=== PATIENT | female | born 1960 | race African-American/Black ===

== ENCOUNTER 2020-08-18 18:10 | Observation (INO) | payer BC, OTHER ==
[2020-08-18] MEDS ORDERED: LEVALBUTEROL 1.25 MG/3 ML NEB ONE (19:09)
[2020-08-18 19:58] LABS: Absolute Lymphocytes (CBC) 2.1 K/uL (0.7-4.9); Lymphocytes % 31.6 % (15.3-44.8); MPV 8.9 fL (7.6-11.3); Protime INR 1.13; RBC Red Blood Cell Count 4.15 M/uL (3.86-4.86)
--- NOTE | 2020-08-18 20:08 | RAD REPORT ---
EXAM DESCRIPTION: RAD - Chest Single View - 08/18/2020 7:42 pm CLINICAL HISTORY: Chest pain;SOB Chest pain. COMPARISON: CHEST SINGLE VIEW dated 04/02/2015; CHEST PA AND LAT 2 VIEW dated 08/01/2008 FINDINGS: Portable technique limits examination quality. Mild interstitial pulmonary edema suspected. The heart is moderately enlarged in size No displaced fr actures. IMPRESSION: Mild CHF.
[2020-08-18 20:18] LABS: Albumin 3.3 g/dL (3.4-5.0); Bilirubin Direct 0.3 mg/dL (0-0.2); Bilirubin Total 0.9 mg/dL (0.2-1.0); Magnesium 1.9 mg/dL (1.8-2.4); Potassium 3.2 mmol/L (3.5-5.1); Protein, Total 8.3 g/dL (6.4-8.2); Troponin (Emerg Dept Use Only) 0.04 ng/mL (0.0-0.045)
--- NOTE | 2020-08-18 20:58 | EDPHYS ---
Physician Documentation [facility] Name: Mary Rodriguez Age: 60 yrs Sex: Female : 1960 Arrival Date: 08/18/2020 Time: 18:11 Bed 19 Private MD: ED Physician Sean Manzano HPI: 08/18 18:51 This 60 yrs old Black Female presents to ER via Wheelchair with complaints of Shortness pm1 Of Breath, Weakness. 18:51 The patient has shortness of breath with light activity. Onset: The symptoms/episode pm1 began/occurred 3 week(s) ago. Duration: The symptoms with exertion only. The patient's shortness of breath is aggravated by exertion, light activity. Associated signs and symptoms: Pertinent positives: chest pain, non-productive cough, Pertinent negatives: fever, nausea, vomiting. Severity of symptoms: in the emergency department the symptoms are worse. The patient has not recently seen a physician, and does not have an established primary care provider. Patient reports finding mold in her house and attributes her symptoms of shortness of breath and chest pain to it. Reports exertional shortness of breath and chest pain for the past 3 weeks that has progressively gotten worse. No fever. Dry cough for 3 weeks. Historical: - Allergies: 18:36 No Known Allergies; ca1 - Home Meds: 18:36 losartan oral oral [Active]; ca1 - PMHx: 18:36 Hypertension; Breast Cancer; ca1 - PSHx: 18:36 breast cancer; Hysterectomy; Mastectomy, Left; Mastectomy, Right; ca1 - Immunization history:: Adult Immunizations up to date. - Social history:: Smoking status: Patient denies any tobacco usage or history of. ROS: 18:59 Constitutional: Negative for fever, chills, and weight loss, Eyes: Negative for injury, pm1 pain, redness, and discharge, ENT: Negative for injury, pain, and discharge, Neck: Negative for injury, pain, and swelling. 18:59 Abdomen/GI: Negative for abdominal pain, nausea, vomiting, diarrhea, and constipation, Back: Negative for injury and pain, : Negative for injury, bleeding, discharge, and swelling, MS/Extremity: Negative for injury and deformity, Skin: Negative for injury, rash, and discoloration, Neuro: Negative for headache, weakness, numbness, tingling, and seizure. 18:59 Cardiovascular: Positive for chest pain, palpitations, with exertion. Bilateral pedal edema. 18:59 Respiratory: Positive for cough, shortness of breath, on exertion. Exam: 18:59 Constitutional: This is a well developed, well nourished patient who is awake, alert, pm1 and in no acute distress. Head/Face: Normocephalic, atraumatic. Chest/axilla: Normal chest wall appearance and motion. Nontender with no deformity. No lesions are appreciated. 18:59 Back: No spinal tenderness. No costovertebral tenderness. Full range of motion. Skin: Warm, dry with normal turgor. Normal color with no rashes, no lesions, and no evidence of cellulitis. MS/ Extremity: Pulses equal, no cyanosis. Neurovascular intact. Full, normal range of motion. 18:59 Cardiovascular: Rate: tachycardic, actual rate is 111 bpm, Rhythm: regular, Pulses: no pulse deficits are appreciated, Heart sounds: normal, normal S1and S2, no S3 or S4, no murmur, no rub, no gallop, Edema: pedal edema, that is very mild. 18:59 Respiratory: the patient does not display signs of respiratory distress, Breath sounds: rhonchi, that are mild, are located in both bases. 18:59 Abdomen/GI: Exam negative for acute changes, Inspection: abdomen appears normal, Palpation: abdomen is soft and non-tender, in all quadrants. 18:59 Neuro: Exam negative for acute changes, Orientation: is normal, Mentation: is normal, Motor: is normal, moves all fours, Sensation: is normal, no obvious gross deficits. Vital Signs: 18:15 BP 151 / 104; Pulse 117; Resp 20; Temp 97.4(TE); Pulse Ox 100% on R/A; Weight 77.11 kg ca1 (R); Height 5 ft. 2 in. (157.48 cm) (R); Pain 5/10; 21:01 BP 158 / 103; Pulse 97; Resp 26; Pulse Ox 99% on R/A; ll2 22:00 BP 152 / 112; Pulse 103; Resp 27; Pulse Ox 99% on R/A; ll2 23:30 BP 150 / 93; Pulse 103; Resp 21; Pulse Ox 100% on R/A; ll2 18:15 Body Mass Index 31.09 (77.11 kg, 157.48 cm) ca1 MDM: 18:38 Patient medically screened. pm1 18:59 Data reviewed: vital signs. Data interpreted: Pulse oximetry: on room air is 100 %. pm1 Interpretation: normal. 20:28 Counseling: I had a detailed discussion with the patient and/or guardian regarding: the pm1 historical points, exam findings, and any diagnostic results supporting the discharge/admit diagnosis, lab results, radiology results, the need for further work-up and treatment in the hospital. 08/18 18:44 Order name: Basic Metabolic Panel; Complete Time: 20:26 pm1 08/18 18:44 Order name: CBC with Diff; Complete Time: 20:10 pm1 08/18 18:44 Order name: LFT's; Complete Time: 20:26 pm1 08/18 18:44 Order name: Magnesium; Complete Time: 20:26 pm1 08/18 18:44 Order name: NT PRO-BNP; Complete Time: 20:26 pm1 08/18 18:44 Order name: PT-INR; Complete Time: 20:10 pm1 08/18 18:44 Order name: Troponin (emerg Dept Use Only); Complete Time: 20:26 pm1 08/18 18:44 Order name: XRAY Chest (1 view); Complete Time: 20:10 pm1 08/18 18:59 Order name: Flu; Complete Time: 21:48 pm1 08/18 18:59 Order name: Strep; Complete Time: 21:06 pm1 08/18 21:05 Order name: Throat Culture [facility] 08/18 21:13 Order name: SARS-COV-2 RT PCR; Complete Time: 22:45 [facility] 08/18 18:37 Order name: EKG; Complete Time: 18:37 ca1 08/18 18:37 Order name: EKG - Nurse/Tech; Complete Time: 18:37 ca1 08/18 18:44 Order name: Cardiac monitoring; Complete Time: 19:49 pm1 08/18 18:44 Order name: IV Saline Lock; Complete Time: 19:49 pm1 08/18 18:44 Order name: Labs collected and sent; Complete Time: 19:49 pm1 08/18 18:44 Order name: O2 Per Protocol; Complete Time: 19:49 pm1 08/18 18:44 Order name: O2 Sat Monitoring; Complete Time: 19:49 pm1 Administered Medications: 19:48 Drug: Xopenex 1.25 mg Route: Inhalation; ll2 20:52 Drug: Lasix 20 mg Route: IVP; Site: right forearm; ea 22:23 Follow up: Response: No adverse reaction ll2 20:54 Drug: Potassium Chloride 40 mEq Route: PO; ea 22:23 Follow up: Response: No adverse reaction ll2 23:03 Drug: hydrALAZINE 10 mg Route: IV; Rate: calculated rate; Site: right wrist; ll2 23:22 Follow up: Response: No adverse reaction; IV Status: Completed infusion ll2 Disposition: 08/18/20 20:57 Hospitalization ordered by Vernon Martin for Inpatient Admission. Preliminary diagnosis are Unspecified systolic (congestive) heart failure, Shortness of breath, Chest pain, unspecified. - Bed requested for Telemetry/MedSurg (Inpatient). - Status is Inpatient Admission. ll2 - Condition is Stable. - Problem is new. - Symptoms are unchanged. Addendum: 08/20/2020 06:58 Co-signature as Attending Physician, Sean Manzano MD I agree with the assessment and k dr plan of care. Signatures: Dispatcher [employer] [facility] Sean Manzano MD MD [facility] Joe Coates, BLUE LEATHER SETTER-C BLUE LEATHER SETTER-Cla1 Louise Bailon, KEEGAN RN Jason Jimenez, MONTSE BENEFITS REPRESENTATIVE pm1 Aisha Lee RN RN ea Acob, Cheryl, RN RN [facility] Gina Collazo RN RN ll2 Corrections: (The following items were deleted from the chart) 08/18 20:58 20:57 Hospitalization Ordered by Vernon Martin MD for Inpatient Admission. Preliminary pm1 diagnosis is Altered mental status, unspecified. Bed requested for Telemetry/MedSurg (Inpatient). Status is Inpatient Admission. Condition is Stable. Problem is new. Symptoms are unchanged. pm1 21:13 19:00 CORONAVIRUS+.CESAR ordered. [facility] EDME 23:10 20:58 08/18/2020 20:57 Hospitalization Ordered by Vernon Martin MD for Inpatient Admission. Preliminary diagnosis is Unspecified systolic (congestive) heart failure; Shortness of breath; Chest pain, unspecified. Bed requested for Telemetry/MedSurg (Inpatient). Status is Inpatient Admission. Condition is Stable. Problem is new. Symptoms are unchanged. pm1 23:49 23:10 08/18/2020 20:57 Hospitalization Ordered by Vernon Martin MD for Inpatient ll2 Admission. Preliminary diagnosis is Unspecified systolic (congestive) heart failure; Shortness of breath; Chest pain, unspecified. Bed requested for Telemetry/MedSurg (Inpatient). Status is Inpatient Admission. Condition is Stable. Problem is new. Symptoms are unchanged. cg
--- NOTE | 2020-08-18 20:58 | ER ---
Nurse's Notes [facility] Name: Mary Rodriguez Age: 60 yrs Sex: Female : 1960 Arrival Date: 08/18/2020 Time: 18:11 Bed 19 Private MD: Diagnosis: Unspecified systolic (congestive) heart failure;Shortness of breath;Chest pain, unspecified Presentation: 08/18 18:15 Chief complaint: Patient states: I got mold in my house, has had SOB x 3 months, but ca1 has been worse past 3 weeks. Cough x 3-4 wks. Denies fever. Denies asthma, COPD, CHF. Reports CP with SOB. CP only with exertion, described as heavy and tight. States, "If I take few steps, I get very short of breath and my chest hurts". Coronavirus screen: Client denies travel out of the [place] in the last 14 days. cough unrelated to allergies, shortness of breath, Client presents with at least one sign or symptom that may indicate coronavirus-19. Standard/surgical mask placed on the client. Provider contacted for isolation considerations. Ebola Screen: Patient negative for fever greater than or equal to 101.5 degrees Fahrenheit, and additional compatible Ebola Virus Disease symptoms Patient denies exposure to infectious person. Patient denies travel to an Ebola-affected area in the 21 days before illness onset. No symptoms or risks identified at this time. Initial Sepsis Screen: Does the patient meet any 2 criteria? No. Patient's initial sepsis screen is negative. Does the patient have a suspected source of infection? No. Patient's initial sepsis screen is negative. Risk Assessment: Do you want to hurt yourself or someone else? Patient reports no desire to harm self or others. Onset of symptoms was August 18, 2020. 18:15 Acuity: PILY 2 ca1 18:15 Method Of Arrival: Wheelchair ca1 Triage Assessment: 22:11 General: Appears in no apparent distress. Behavior is calm, cooperative, appropriate ll2 for age. Respiratory: Respiratory: Reports shortness of breath Onset: The symptoms/episode began/occurred gradually. Historical: - Allergies: 18:36 No Known Allergies; ca1 - Home Meds: 18:36 losartan oral oral [Active]; ca1 - PMHx: 18:36 Hypertension; Breast Cancer; ca1 - PSHx: 18:36 breast cancer; Hysterectomy; Mastectomy, Left; Mastectomy, Right; ca1 - Immunization history:: Adult Immunizations up to date. - Social history:: Smoking status: Patient denies any tobacco usage or history of. Screenin:55 Abuse screen: Denies threats or abuse. Nutritional screening: No deficits noted. ea Tuberculosis screening: No symptoms or risk factors identified. Fall Risk IV access (20 points). Assessment: 20:00 Reassessment: No changes from previously documented assessment. Patient and/or family ll2 updated on plan of care and expected duration. Pain level reassessed. Patient is alert, oriented x 3, equal unlabored respirations, skin warm/dry/pink. General: Appears in no apparent distress. Behavior is calm, cooperative, appropriate for age. 20:55 Reassessment: Patient and/or family updated on plan of care and expected duration. Pain ea level reassessed. Patient is alert, oriented x 3, equal unlabored respirations, skin warm/dry/pink. 20:56 Pain: Denies pain. Respiratory: Airway is patent Respiratory effort is even, unlabored, ea Respiratory pattern is regular, symmetrical. 21:55 Reassessment: ERD notified of elevated BP, advised to refer to hospitalist for orders, ll2 Joe contacted and verbal order obtained for Hydralazine. Cardiovascular: Rhythm is sinus rhythm. 22:12 Respiratory: Breath sounds with wheezes. ll2 23:27 Reassessment: Report given to Aisha Govea RN. ll2 Vital Signs: 18:15 BP 151 / 104; Pulse 117; Resp 20; Temp 97.4(TE); Pulse Ox 100% on R/A; Weight 77.11 kg ca1 (R); Height 5 ft. 2 in. (157.48 cm) (R); Pain 5/10; 21:01 BP 158 / 103; Pulse 97; Resp 26; Pulse Ox 99% on R/A; ll2 22:00 BP 152 / 112; Pulse 103; Resp 27; Pulse Ox 99% on R/A; ll2 23:30 BP 150 / 93; Pulse 103; Resp 21; Pulse Ox 100% on R/A; ll2 18:15 Body Mass Index 31.09 (77.11 kg, 157.48 cm) ca1 ED Course: 18:11 Patient arrived in ED. ag5 18:33 Jason Jimenez NP is PHCP. pm1 18:33 Sean Manzano MD is Attending Physician. pm1 18:35 Triage completed. ca1 18:36 Arm band placed on right wrist. ca1 18:36 EKG done, by ED staff, reviewed by Jason Jimenez NP. ca1 19:18 Loni Boyer, RN is Primary Nurse. 19:42 XRAY Chest (1 view) In Process Unspecified. EDMS 19:42 Inserted saline lock: 20 gauge in right forearm, using aseptic technique. Blood dh4 collected. 20:55 Patient has correct armband on for positive identification. Placed in gown. Bed in low ea position. Call light in reach. Side rails up X 1. 20:57 Vernon Martin MD is Hospitalizing Provider. pm1 23:48 No provider procedures requiring assistance completed. Patient admitted, IV remains in ll2 place. Administered Medications: 19:48 Drug: Xopenex 1.25 mg Route: Inhalation; ll2 20:52 Drug: Lasix 20 mg Route: IVP; Site: right forearm; ea 22:23 Follow up: Response: No adverse reaction ll2 20:54 Drug: Potassium Chloride 40 mEq Route: PO; ea 22:23 Follow up: Response: No adverse reaction ll2 23:03 Drug: hydrALAZINE 10 mg Route: IV; Rate: calculated rate; Site: right wrist; ll2 23:22 Follow up: Response: No adverse reaction; IV Status: Completed infusion ll2 Outcome: 20:57 Decision to Hospitalize by Provider. pm1 23:49 Admitted to Med/surg accompanied by tech, via wheelchair, Report called to Aisha Govea RN ll2 23:49 Condition: stable 23:49 Instructed on the need for admit. 23:49 Patient left the ED. ll2 Signatures: Dispatcher [employer] [facility]CO Jason Jimenez NP CDA TEACHER pm1 Aisha Lee RN RN ea Acob, Cheryl, RN RN Karen Vanessa 5 Loni Boyer, RN Cedrick Louis 4 Gina Collazo RN RN ll2 Corrections: (The following items were deleted from the chart) 18:38 18:15 Method Of Arrival: Ambulatory ca1 ca1 20:56 20:55 Reassessment: Patient and/or family updated on plan of care and expected ea duration. Pain level reassessed. Patient is alert, oriented x 3, equal unlabored respirations, skin warm/dry/pink. ea 23:04 23:03 hydrALAZINE 10 mg IV at calculated rate in right forearm ll2 ll2
[2020-08-18] MEDS ORDERED: POTASSIUM CL SA 10 MEQ TAB PO ONE (20:59)
[2020-08-18] MEDS ORDERED: FUROSEMIDE 20 MG/ 2ML VIAL ONE (20:59)
--- NOTE | 2020-08-18 22:47 | P.HP ---
Certification for Inpatient Patient admitted to: Observation With expected LOS: <2 Midnights Patient will require the following post-hospital care: None Practitioner: I am a practitioner with admitting privileges, knowledge of patient current condition, hospital course, and medical plan of care. Services: Services provided to patient in accordance with Admission requirements found in Title 42 Section 412.3 of the Code of Federal Regulations <AminataJoe - Last Filed: 08/18/20 22:43> Patient History Date of Service: 08/18/20 Primary Care Provider: Dr. Loyd Reason for admission: Acute CHF History of Present Illness: 60-year-old female with history of hypertension presents [facility] department for chest pain, dyspnea on exertion, progressive swelling of the lower extremities over the course of the last 2 weeks. Patient denies any known history of CHF. Patient has never seen cardiology. Patient was worked up in the emergency department and found to have elevated BNP at 2493. Chest x-ray with mild pulmonary edema. Patient with significant dyspnea on exertion, can barely walk to bathroom without becoming dyspneic. ED provider wishes to admit patient for further evaluation and management. When I saw the patient in the emergency department she is awake, alert, oriented x3. Patient states she only has chest pain and dyspnea with exertion, okay at rest at this time. Patient does have bibasilar crackles/rales on exam. 2+ nonpitting edema bilateral lower extremities. Patient be admitted for further evaluation and management. 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 - Family History Father -: Heart disease, Hypertension, Diabetes Mother -: Hypertension, Diabetes - Social History Smoking Status: Never smoker Alcohol use: Yes CD- Drugs: No Caffeine use: No Place of Residence: Home <Joe Coates - Last Filed: 08/18/20 22:43> Date of Service: 08/22/20 <Vernon Martin - Last Filed: 08/22/20 13:20> Allergies No Known Drug Allergies Allergy (Verified 04/02/15 05:54) Unknown Home Medications: Aspirin [Aspirin EC 81 MG] 81 mg PO DAILY 30 Days #30 tablet. 08/19/20 Furosemide [Lasix] 40 mg PO DAILY 30 Days #30 tablet 08/19/20 Metoprolol Tartrate [Lopressor*] 1 tab PO BID 30 Days #60 tab 08/19/20 lisinopriL [Lisinopril] 1 tab PO DAILY 30 Days #30 tablet 08/19/20 Review of Systems 10-point ROS is otherwise unremarkable Respiratory: Shortness of Breath, SOB with Excertion Cardiovascular: Chest Pain, Orthopnea <Joe Coates - Last Filed: 08/18/20 22:43> Physical Examination - Physical Exam General: Alert, In no apparent distress, Oriented x3 HEENT: Atraumatic, Normocephalic, Mucous membr. moist/pink Neck: Supple Respiratory: Clear to auscultation bilaterally, Crackles/rales (Bibasilar) Cardiovascular: Normal pulses, Regular rate/rhythm, Normal S1 S2, Edema (2+ nonpitting edema bilateral lower extremities) Capillary refill: <2 Seconds Gastrointestinal: Normal bowel sounds, Soft and benign Musculoskeletal: No swelling, No contractures, No erythema Integumentary: No breakdown, No significant lesion, No tenderness/swelling Neurological: Normal speech, Normal strength at 5/5 x4 extr, Normal tone, Sensation intact - Studies Laboratory Data (last 24 hrs) 08/18/20 19:41: PT 13.3 H, INR 1.13 08/18/20 19:41: WBC 6.6, Hgb 11.7 L, Hct 36.0, Plt Count 243 08/18/20 19:41: Sodium 141, Potassium 3.2 L, BUN 16, Creatinine 0.89, Glucose 76, Magnesium 1.9, Total Bilirubin 0.9, AST 106 H, ALT 99 H, Alkaline Phosphatase 97 Microbiology Data (last 24 hrs): 08/18/20 20:34 Nasopharnyx Influenza Type A Antigen Screen - Final 08/18/20 20:34 Nasopharnyx Influenza Type B Antigen Screen - Final 08/18/20 20:34 Throat Group A Streptococcus Rapid Screen - Final <Joe Coates - Last Filed: 08/18/20 22:43> - Studies Microbiology Data (last 24 hrs): 08/18/20 20:34 Throat Culture & Sensitivity - Final NORMAL UPPER RESPIRATORY DAVID GROWN. <Vernon Martin - Last Filed: 08/22/20 13:20> Assessment and Plan - Plan Assessment Chest pain, edema and dyspnea on exertion suspect new onset CHF Hypertension Plan Chest pain, edema and dyspnea on exertion suspect new onset CHF: Continue with the IV diuresis at this time. Cardiology consult in place. Obtain echocardiogram. Monitor on telemetry. Initiate beta-ajy therapy, likely add ARAMIS-inhibitor. DVT prophylaxis is Lovenox 40 mg subcutaneous once daily. Appreciate further input from cardiology. Hypertension: Initiate beta-jay and ARAMIS-inhibitor. Discharge Plan: Home Plan to discharge in: 24 Hours - Advance Directives Does patient have a Living Will: No Does patient have a Durable POA for Healthcare: No - Code Status/Comfort Care Code Status Assessed: Yes (Patient is full code) Critical Care: No Time Spent Managing Pts Care (In Minutes): 55 <Joe Coates - Last Filed: 08/18/20 22:43> Physician Review Additional Text: Plan of care discussed with Joe Coates, and I agree with the management plan as noted above. <Vernon Martin - Last Filed: 08/22/20 13:20>
[2020-08-18] MEDS ORDERED: HYDRALAZINE HCL 20 MG/ML VIAL ONE (22:56)
[2020-08-18 23:59] VITALS: BMI 29.0
[2020-08-19] MEDS ORDERED: HYDRALAZINE HCL 20 MG/ML VIAL IV PRN (00:09)
[2020-08-19] MEDS ORDERED: ACETAMINOPHEN 500 MG TAB PO PRN (00:09)
[2020-08-19] MEDS ORDERED: ONDANSETRON 4 MG/2 ML VIAL IV PRN (00:09)
[2020-08-19] MEDS ORDERED: METOPROLOL TAR 25 MG TAB PO SCH (06:00)
[2020-08-19 07:19] LABS: Absolute Lymphocytes (CBC) 1.4 K/uL (0.7-4.9); Basophils % 0.9 % (0-1.3); Hematocrit 35.2 % (36.0-45.0); Lymphocytes % 25.6 % (15.3-44.8); MPV 9.2 fL (7.6-11.3); RBC Red Blood Cell Count 4.08 M/uL (3.86-4.86)
[2020-08-19 07:33] LABS: BUN Blood Urea Nitrogen 12 mg/dL (7-18); Bicarbonate 25 mmol/L (21-32); Glucose Level 70 mg/dL (74-106); HDL Cholesterol 49 mg/dL (40-60); LDL Cholesterol, Calculated 58 (<130); Potassium 3.5 mmol/L (3.5-5.1); Sodium Level 140 mmol/L (136-145); Thyroid Stimulating Hormone 0.964 uIU/mL (0.360-3.740)
[2020-08-19] MEDS ORDERED: FUROSEMIDE 20 MG/ 2ML VIAL IV SCH (09:00)
[2020-08-19] MEDS ORDERED: ENOXAPARIN 40 MG/0.4 ML SQ SCH (09:00)
[2020-08-19] MEDS ORDERED: lisinopriL 5 MG TAB PO SCH (09:00)
[2020-08-19 09:37] VITALS: O2SAT 99
[2020-08-19 11:17] VITALS: TEMP 97
--- NOTE | 2020-08-19 11:48 | P.DS ---
Admission Date: 08/18/20 Discharge Date: 08/19/20 Primary Care Provider: Dr. Loyd Disposition: ROUTINE DISCHARGE Discharge Condition: GOOD Reason for Admission: Acute CHF Consultations: Cardiology - Dr. Cross Procedures: CXR (08/18): Mild interstitial pulmonary edema suspected. The heart is moderately enlarged in size. No displaced fractures. Problem List Chest pain acute exacerbation of chronic systolic CHF Hypertension Brief History of Present Illness: 60yo female, PMH: chronic systolic CHF (EF: 35% in 2016), HTN who presented to ED due to chest pain, ESCALANTE, progressive swelling of b/l lower extremities over the last 2 weeks. Patient was found to have a BNP of 2493, CXR: mild pulmonary edema, and significant dyspnea on exertion, can barely walk to bathroom without becoming dyspneic. Hospital Course: Patient was diuresed overnight and the following morning she reported feeling significantly improved, able to walk to bathroom and around her room without dyspnea. Her troponins remained negative. Cardiology was consulted and agreed patient was ready for discharge home. She did not require oxygen, was breathing comfortably on room air. She will follow up with Cardiology for an outpatient echocardiogram and stress test. This exacerbation was felt due to patient's noncompliance with medications. The importance of her medications was emphasized prior to discharge home. Patient's ARB-HCTZ was discontinued on discharge and she was sent prescriptions for Aspirin, Metoprolol, Lisinopril, and Lasix Vital Signs/Physical Exam: Temp Pulse Resp BP Pulse Ox 97 F 78 18 145/74 H 96 08/19/20 08:00 08/19/20 09:31 08/19/20 08:00 08/19/20 09:31 08/19/20 08:00 General: Alert, In no apparent distress HEENT: Mucous membr. moist/pink Neck: Supple, JVD not distended Respiratory: Clear to auscultation bilaterally, Normal air movement Cardiovascular: Edema (trace to mid wang bilaterally) Gastrointestinal: Soft and benign, Non-distended, No tenderness Musculoskeletal: No erythema, No tenderness Integumentary: No rashes Neurological: Normal speech, Normal affect Laboratory Data at Discharge: WBC 5.6 K/uL (4.3-10.9) D 08/19/20 07:00 Hgb 11.5 g/dL (12.0-15.0) L 08/19/20 07:00 Hct 35.2 % (36.0-45.0) L 08/19/20 07:00 Plt Count 257 K/uL (152-406) 08/19/20 07:00 PT 13.3 SECONDS (9.5-12.5) H 08/18/20 19:41 INR 1.13 08/18/20 19:41 Sodium 140 mmol/L (136-145) 08/19/20 07:00 Potassium 3.5 mmol/L (3.5-5.1) 08/19/20 07:00 BUN 12 mg/dL (7-18) 08/19/20 07:00 Creatinine 0.74 mg/dL (0.55-1.3) 08/19/20 07:00 Glucose 70 mg/dL (74-106) L 08/19/20 07:00 Magnesium 1.9 mg/dL (1.8-2.4) 08/18/20 19:41 Total Bilirubin 0.9 mg/dL (0.2-1.0) 08/18/20 19:41 AST 106 U/L (15-37) H 08/18/20 19:41 ALT 99 U/L (12-78) H 08/18/20 19:41 Alkaline Phosphatase 97 U/L (45-117) 08/18/20 19:41 Troponin I 0.03 ng/mL (0.0-0.045) 08/19/20 07:00 Triglycerides 57 mg/dL (<150) 08/19/20 07:00 Cholesterol 118 mg/dL (<200) 08/19/20 07:00 HDL Cholesterol 49 mg/dL (40-60) 08/19/20 07:00 Cholesterol/HDL Ratio 2.41 08/19/20 07:00 Home Medications: Aspirin [Aspirin EC 81 MG] 81 mg PO DAILY 30 Days #30 tablet. 08/19/20 Furosemide [Lasix] 40 mg PO DAILY 30 Days #30 tablet 08/19/20 Metoprolol Tartrate [Lopressor*] 1 tab PO BID 30 Days #60 tab 08/19/20 lisinopriL [Lisinopril] 1 tab PO DAILY 30 Days #30 tablet 08/19/20 New Medications: Aspirin [Aspirin EC 81 MG] 81 mg PO DAILY 30 Days #30 tablet. Furosemide [Lasix] 40 mg PO DAILY 30 Days #30 tablet lisinopriL [Lisinopril] 1 tab PO DAILY 30 Days #30 tablet Metoprolol Tartrate [Lopressor*] 1 tab PO BID 30 Days #60 tab Patient Discharge Instructions: Follow up with PCP within 1 week. Follow up with Dr. Cross (Cardiology) in 2 weeks - you will need to have an Echocardiogram and Stress test done. Diet: AHA Activity: Ad larry Followup: Travis Cross MD [ACTIVE - CAN ADMIT] - Time spent managing pt's care (in minutes): 35
[2020-08-19 12:40] VITALS: BP 122/72
--- NOTE | 2020-08-20 09:35 | CON ---
Date of Consultation: 08/19/2020 Reason For Consultation: Congestive heart failure. History Of Present Illness: Ms. Rodriguez is a 60-year-old black woman with history of hypertension, breast cancer that has been cured in 2015. An echocardiogram showed an ejection fraction of 36% with moderate pulmonary hypertension, but she has not been followed for any of her medical problems and i s not really taking any medication at home. She came in with shortness of breath, weakness, was foun d to have congestive heart failure on the x-ray and potassium of 3.2. Her BNP was 2493. She was hyp ertensive at 158/112. She denied any chest pain. Denied any nausea, vomiting, or diaphoresis. Has had PND, orthopnea and pedal edema. She denied any palpitations or syncope. Denied any fever or chi lls. Allergies: NONE. Review of Systems: Negative. Social History: Negative. Family History: Noncontributory. Medications: At home are supposed to be losartan, but I am not so sure if she is taking it. Physical Examination: Vital Signs: When I saw her, her vital signs are stable. She was in a sinus rhythm. General: She was in no acute distress. She was feeling better after diuresis. HEENT: Negative: Neck: Supple without any bruit, lymphadenopathy, JVD, or thyromegaly. Chest: Revealed rales at the bases. Cardiac: Revealed a regular rhythm and rate with S3 gallops. No murmurs or rubs. Abdomen: Benign. Extremities: Revealed no clubbing, cyanosis, or edema. Diagnostic Data: As stated earlier. EKG showed LVH. Impression: 1.Acute on chronic systolic congestive heart failure. 2.Moderate pulmonary hypertension. 3.Hypertension. 4.History of breast cancer. Plan: Patient presently is on Lovenox, Lasix, metoprolol, hydralazine, and lisinopril. She is doing much better. Echocardiogram is pending for 08/20/2020. We need to focus on treating her hypertensi on and CHF. She is on the right regimen right now. She needs her potassium supplemented. I am comf ortable with her going home in a day or so and we will make arrangement for outpatient stress test an d followup. In the future, she needs to be on beta-blockers, Lasix, ARAMIS inhibitor, salt restriction, or fluid restriction. NB/MODL Voice ID: [id number] Report ID: [id number]
--- OUTSIDE RECORDS SUMMARY | 2020-08-22 23:32 | XMS REPORT | Continuity of Care Document ---
:1960 Author Organization [facility] t Address [address] [place] [address] Care Team Providers Name Role Phone Dennis Hallman Attending Clinician Michelle Garcia Attending Clinician Dennis Hallman Admitting Clinician Problems Condition Condition Condition Status Onset Resolution Last Treating Co mments Source Name Details Category Date Date Treatment Clinician Date FLU Diagnosis Active [id number] [facility] 22:05:00 l FLU 00:00: [place] 00 Active 09/14/2017 [facility] Allergies, Adverse Reactions, Alerts This patient has no known allergies or adverse reactions. Social History Social Habit Start Date Stop Date Quantity Comments Source Social History 2017-09-15 2017-09-15 [facility] 03:01:00 03:01:00 Medications Ordered Filled Start Stop Current Ordering Indication Dosage Frequency Signature Comments Components Source Medication Medication Date Date Medication? Clinician (SIG) Name Name hydrochloro No Notes: Karl bert thiazide 25 5-29 (Same as: l mg oral 14:00: Hydrodiuri Herm marcello tablet 00 l) With food. lisinopril No Notes: Memor ia 5-29 (Same as: l 14:00: Prinivil, [place] 00 Zestril) Docusate No Notes: Memoria 5-29 (Same as: l 14:00: Colace) [place] 00 (Do Not Crush) Hydrochloro No 1 tab, Karl bert thiazide 25 5-29 Route: PO, l MG / 14:00: Drug Form: [place] Lisinopril 00 TAB, 20 MG Oral Dosing Tablet Weight 74.545, kg, Daily, Start date: 04/13/18 9:00:00 CDT, Duration: 30 day, Stop date: 05/12/18 9:00:00 CDT Protonix No Notes: Memoria 5-29 Tablet l 12:30: should not [place] be chewed or crushed. (Same as: Protonix) Ondansetron No Notes: Karl bert 5-29 (Same as: l 11:27: Zofran) [place] 00 MEDICATION WASTE Product Size: 4 mg Product Wasted: ___ mg Acetaminoph Yes 3, PO, Karl bert en 500 MG 5-29 Daily, PRN l Oral Tablet 10:07: Pain Score [place] [Tylenol] 00 6-10, 0 Refill(s) Clonidine Yes 0.2 mg = 1 Me moria Hydrochlori 5-29 tab, PO, l de 0.2 MG 10:00: Bedtime, # He rmann Oral Tablet 00 60 tab, 0 Refill(s) Hydrochloro 2017- Yes 1 tab, PO, Memoria thiazide 25 5-29 Daily, # l MG / 10:00: 30 tab, 0 [place] Lisinopril 00 Refill(s) 20 MG Oral Tablet lisinopril No 20 mg = 1 Me moria 20 mg oral 5-29 tab, PO, l tablet 10:00: Daily, # [place] 00 30 tab, 0 Refill(s) Aspirin No 324 mg, Memoria 5-29 Route: PO, l 06:37: ONCE, [place] Dosing Weight 73.21, kg, Priority: STAT, Start date: 04/13/18 1:37:00 CDT, Stop date: 04/13/18 1:37:00 CDT Saline No Notes: Memoria Flush 0.9% -29 (Same as: l 06:37: BD [place] Posiflush) Vital Signs Vital Name Observation Time Observation Value Comments Source Systolic (mm Hg) 2018-04-13 15:55:00 Karl rial [place] Diastolic (mm Hg) 2018-04-13 15:55:00 Mem orial [place] Respitory Rate 2018-04-13 15:55:00 Memori al [place] Heart Rate 2018-04-13 15:55:00 [facility] [place] Temperature Oral (F) 2018-04-13 15:55:00 98.2 F [facility] [place] Systolic (mm Hg) 2018-04-13 12:26:00 Karl rial [place] Diastolic (mm Hg) 2018-04-13 12:26:00 Mem orial [place] Respitory Rate 2018-04-13 12:26:00 Memori al [place] Heart Rate 2018-04-13 12:26:00 [facility] [place] Temperature Oral (F) 2018-04-13 12:26:00 98.3 F [facility] [place] Respitory Rate 2018-04-13 09:58:00 Memori al [place] Systolic (mm Hg) 2018-04-13 09:58:00 Karl rial [place] Diastolic (mm Hg) 2018-04-13 09:58:00 Mem orial [place] Heart Rate 2018-04-13 09:58:00 [facility] [place] Temperature Oral (F) 2018-04-13 09:58:00 98.3 F [facility] [place] Weight 2018-04-13 09:22:00 [facility] BMI Calculated 2018-04-13 09:22:00 [facility] al [place] Height 2018-04-13 09:22:00 157.48 cm [facility] [place] Weight 2018-04-13 06:00:00 [facility] [place] Weight 2017-09-14 19:55:00 [facility] [place] BMI Calculated 2017-09-14 19:55:00 [facility] [place] Height 2017-09-14 19:55:00 165.1 cm [facility] [place] Systolic (mm Hg) 2017-09-14 19:55:00 Karl rial [place] Diastolic (mm Hg) 2017-09-14 19:55:00 Mem orial [place] Respitory Rate 2017-09-14 19:55:00 [facility] [place] Heart Rate 2017-09-14 19:55:00 [facility] [place] Temperature Oral (F) 2017-09-14 19:55:00 98.6 F [facility] Procedures Procedure Date / Time Performed Performing Clinician Sourc e Bilateral radical [facility] mastectomy Encounters Start End Encounter Admission Attending Care Care Encounter Source Date/Time Date/Time Type Type Clinicians Facility Department ID 2018-04-13 2018-04-13 Outpatient RILEY HallmanSSita [facility] [id number] 00:54:00 15:29:00 Hansel Amador Collins 2017-09-14 2017-09-[id number] 14:29:00 22:01:00 nderson, 00 Mirlande Martinez Results Test Description Test Time Test Comments Results Result Comments Source CARDIAC ENZYMES 2018-04-13 0.8 [facility] [place] 16:28:00 CARDIAC ENZYMES 2018-04-13 16:28:00 Test Item Value Reference Range Interpretation Comme nts CK MB Index (test code = CK MB Index) 0.9 1 <=2.5 [facility] [id number] 16:28:00<0.02[facility] [place] CARDIAC [id number] 16:28:0086[facility] [id number] 11:44:000.02[facility] [id number] 11:44:0085[facility] [place] CARDIAC [id number] 11:44:00 Test Item Value Reference Range Interpretation Comments CK MB Index (test code = CK MB Index) 0.8 1 <=2.5 [facility] [id number] 11:44:000.7[facility]ann[facility]IPIDS 2018-04-13 11:44:00 Test Item Value Reference Range Interpretation Comments CHD Risk (test code = CHD Risk) 3.24 1 3.90-5.80 [facility] [id number] 11:44:53323Nkytqvvs HqyrfcgMOTNCT3730-36-61 11:44:00 Test Item Value Reference Range Interpretation Comments VLDL (test code = VLDL) 26 1 [facility] YshkwnkWPDFRV5732-87-67 11:44:0050[facility] RmsweqbQVGWVT0608-34-11 11:44:93206Torpjzfm TuxjsqiOHYWGI1564-96-01 11:44:0086[facility]annSPECIAL [id number] 11:44:004.6[facility]ARD[facility] [id number] 07:08:00 Test Item Value Reference Range Interpretation Comments CK MB Index (test code = CK MB Index) 0.9 1 <=2.5 [facility] [id number] 07:08:007[facility] [id number] 07:08:001.0[facility] [id number] 07:08:00 0.02[facility]annCARDIAC [id number] 07:08:62627Jdmumlno HermannCHEM [id number] 07:08:0044[facility] HermannCHEM [id number] 07:08:0054 [facility]annCHEM [id number] 07:08:00 Test Item Value Reference Range Interpretation Comments B/C Ratio (test code = B/C Ratio) 30 1 6-25 [facility]annCHEM [id number] 07:08:004.4[facility]annCHEM PANEL 2018-04-13 07:08:000.2[facility] HermannCHEM [id number] 07:08:0010.emorial HermannCHEM [id number] 07:08:00 Test Item Value Reference Range Interpretation Comments A/G Ratio (test code = A/G Ratio) 0.9 1 0.7-1.6 [facility]annCHEM [id number] 07:08:0026[facility] HermannCHEM PANEL 2018-04-13 07:08:009.2[facility] HermannCHEM [id number] 07:08:0014[facility] HermannCHEM [id number] 07:08:0015[facility] HermannCHEM [id number] 07:08:008.2[facility] HermannCHEM [id number] 07:08:003.8[facility] HermannCHEM [id number] 07:08:0046[facility] HermannCHEM [id number] 07:08:0098 [facility]annCHEM [id number] 07:08:003.6[facility] HermannCHEM PANEL 2018-04-13 07:08:58347Szuizczx HermannCHEM [id number] 07:08:001.51[facility] HermannCHEM [id number] 07:08:84908Xjecpcgv QgloylxLXIKDRAPZL6932-53-37 07:08:000.6[facility] AwoliiwXDYIVTORXF0562-09-74 07:08:003.5[facility] ZTHCEMRBDK2462-04-99 07:08:002.4[facility] NlufxqwOWXKBUXTOX2928-83-25 07:08:003.1 [facility] PupdsnnNYFWXFGJML5806-03-41 07:08:006.3[facility] HermannHEMATOLOGY 2018-04-13 07:08:000.2[facility] LmtnsqzAVHRQUCHBX0883-09-85 07:08:000.0[facility] AtatxteYOVLQIJYMD7998-99-04 07:08:000.4[facility] HdhonkjKITXVQTBFS2910-49-93 07:08:0036.9[facility] CisslgaSLUCGFAOFK7651-09-59 07:08:0053.1[facility] GUIWGVGAYK7887-31-04 07:08:15836Espyszku YwkmxhtGBHTQZHVTN4902-68-25 07:08:00 Test Item Value Reference Range Interpretation Comments MCH (test code = MCH) 28.3 pg 27.0-31.0 [facility] DtdcuroWIZJELQDKF8538-33-32 07:08:0089.6[facility] HermannHEMATOLOGY 2018-04-13 07:08:0031.6[facility] SpreewvWRGPVYTGYX4985-49-22 07:08:0015.2[facility] IkdwdqsNQORFTZDAX4484-06-93 07:08:009.7[facility] InhvkvrOQFPEKCNZL0847-93-29 07:08:003.08[facility] KochnnwQBCLSGMECZ2584-51-91 07:08:008.7[facility] [place] DJMPQRDKNX3487-30-13 07:08:006.6[facility] LekvwxzBLORQOQPVQ4716-23-46 07:08:00 27.6[facility]
--- OUTSIDE RECORDS SUMMARY | 2020-08-22 23:32 | XMS REPORT | Continuity of Care Document ---
:1960 Author Organization [facility] Care Team Providers Name Role Phone [facility] Unavailable Un available Problems Problem Status Onset Classification Date Comments Sourc e Date Reported FLU Active [address] Medications Medication Details Route Status Patient Ordering Order Source Instructions Provider Date hydrochlorothiazide Notes: (Same Inactive 25 mg oral tablet as: 2018 [place] Hydrodiuril) [place] With food. lisinopril Notes: (Same Inactive as: 2018 [place] Prinivil, [place] Zestril) Docusate Notes: (Same Inactive as: Colace) 2018 [place] (Do Not [place] Crush) Hydrochlorothiazide 1 tab, Inactive 25 MG / Lisinopril 20 Route: PO, 2018 [place] MG Oral Tablet Drug Form: [place] TAB, Dosing Weight 74.545, kg, Daily, Start date: 04/13/18 9:00:00 CDT, Duration: 30 day, Stop date: 05/12/18 9:00:00 CDT Protonix Notes: Inactive Tablet 2018 [place] should not [place] be chewed or crushed. (Same as: Protonix) Ondansetron Notes: (Same Inactive as: Zofran) 2018 [place] MEDICATION WASTE Product Size: 4 mg Product Wasted: ___ mg Acetaminophen 500 MG 3, PO, Active Oral Tablet [Tylenol] Daily, PRN 2018 [place] Pain Score [place] 6-10, 0 Refill(s) Clonidine 0.2 mg = 1 Active Hydrochloride 0.2 MG tab, PO, 2018 Gupta gar Oral Tablet Bedtime, # [place] 60 tab, 0 Refill(s) Hydrochlorothiazide 1 tab, PO, Active 04/13/ H 25 MG / Lisinopril 20 Daily, # 30 2018 [place] MG Oral Tablet tab, 0 [place] Refill(s) lisinopril 20 mg oral 20 mg = 1 Inactive tablet tab, PO, 2017 [place] Daily, # 30 [place] tab, 0 Refill(s) Aspirin 324 mg, Inactive Route: PO, 2018 [place] ONCE, Dosing [place] Weight 73.21, kg, Priority: STAT, Start date: 04/13/18 1:37:00 CDT, Stop date: 04/13/18 1:37:00 CDT Saline Flush 0.9% Notes: (Same Inactive as: BD 2018 [place] Posiflush) [place] Allergies, Adverse Reactions, Alerts No Known Medication Allergies Immunizations No Data Provided for This Section Results Order Name Results Value Reference Date Interpretation Comments Carolyn rce Range CARDIAC CK MB 0.8 0.5 - 3.6 ENZYMES 2018 [place] CARDIAC CK MB Index 0.9 0.0 - 2.5 ENZYMES 2018 [place] CARDIAC Troponin-I <0.02 0.00 - 0.40 ENZYMES 2018 [place] CARDIAC Total CK 86 12 - 191 ENZYMES 2018 [place] CARDIAC Troponin-I 0.02 0.00 - 0.40 ENZYMES 2018 [place] CARDIAC Total CK 85 12 - 191 ENZYMES 2018 [place] CARDIAC CK MB Index 0.8 0.0 - 2.5 ENZYMES 2018 [place] CARDIAC CK MB 0.7 0.5 - 3.6 ENZYMES 2018 [place] LIPIDS CHD Risk 3.24 3.90 - 5.80 2018 [place] LIPIDS Chol 162 <=199 mg/dL 2018 [place] LIPIDS VLDL 26 2018 [place] LIPIDS HDL 50 >=61 mg/dL 2018 [place] LIPIDS Trig 129 <=149 mg/dL 2018 [place] LIPIDS LDL 86 <=99 mg/dL (Calculated) 2017 [place] SPECIAL Hgb A1C 4.6 <=5.6 % CHEMISTRY 2018 [place] CARDIAC CK MB Index 0.9 0.0 - 2.5 ENZYMES 2018 [place] CARDIAC BNP 7 <=100 pg/mL ENZYMES 2018 [place] CARDIAC CK MB 1.0 0.5 - 3.6 ENZYMES 2018 [place] CARDIAC Troponin-I 0.02 0.00 - 0.40 ENZYMES 2018 [place] CARDIAC Total CK 107 12 - 191 ENZYMES 2018 [place] CHEM PANEL eGFR 44 2017 Comment: The [place] eGFR is [place] calculated using the CKD-EPI formula. In most young, healthy individuals the eGFR will be >90 mL/min/1.73m2 . The eGFR declines with age. An eGFR of 60-89 may be normal in some populations, particularly the elderly, for whom the CKD-EPI formula has not been extensively validated. Use of the eGFR is not recommended in the following populations:< br/>
Arianna viduals with unstable creatinine concentration s, including patients and those with serious co-morbid conditions.<b r/>
Patie nts with extremes in muscle mass or diet.

The data above are obtained from the National Kidney Disease Education Program (NKDEP) which additionally recommends that when the eGFR is used in patients with extremes of body mass index for purposes of drug dosing, the eGFR should be multiplied by the estimated BMI. CHEM PANEL Alk Phos 54 39 - 136 2017 [place] CHEM PANEL B/C Ratio 30 6 - 25 2017 [place] CHEM PANEL Globulin 4.4 2.7 - 4.2 2017 [place] CHEM PANEL Bili Total 0.2 0.2 - 1.3 2017 [place] CHEM PANEL AGAP 10.6 10.0 - 20.0 2017 [place] CHEM PANEL A/G Ratio 0.9 0.7 - 1.6 2017 [place] CHEM PANEL CO2 26 24 - 32 2017 [place] CHEM PANEL Calcium Lvl 9.2 8.5 - 10.5 2017 [place] CHEM PANEL ALT 14 0 - 65 2017 [place] CHEM PANEL AST 15 0 - 37 2017 [place] CHEM PANEL Total Protein 8.2 6.4 - 8.4 2017 [place] CHEM PANEL Albumin Lvl 3.8 3.5 - 5.0 2017 [place] CHEM PANEL BUN 46 7 - 22 2017 [place] CHEM PANEL Glucose Lvl 98 70 - 99 2017 [place] CHEM PANEL Potassium Lvl 3.6 3.5 - 5.1 2017 [place] CHEM PANEL Chloride Lvl 104 95 - 109 2017 [place] CHEM PANEL Creatinine 1.51 0.50 - 1.40 Lvl 2018 [place] CHEM PANEL Sodium Lvl 137 135 - 145 2017 [place] HEMATOLOGY Basophils 0.6 0.0 - 1.0 2017 [place] HEMATOLOGY Segs-Bands # 3.5 1.5 - 8.1 2017 [place] HEMATOLOGY Lymphocytes # 2.4 1.0 - 5.5 2017 [place] HEMATOLOGY Eosinophils 3.1 0.0 - 4.0 2017 [place] HEMATOLOGY Monocytes 6.3 2.0 - 12.0 2017 [place] HEMATOLOGY Eosinophils # 0.2 0.0 - 0.5 2017 [place] HEMATOLOGY Basophils # 0.0 0.0 - 0.2 2017 [place] HEMATOLOGY Monocytes # 0.4 0.0 - 0.8 2017 [place] HEMATOLOGY Lymphocytes 36.9 20.0 - 40.0 2017 [place] HEMATOLOGY Segs 53.1 45.0 - 75.0 2017 [place] HEMATOLOGY Platelet 186 133 - 450 2017 [place] HEMATOLOGY MCH 28.3 27.0 - 31.0 2017 [place] HEMATOLOGY MCV 89.6 80.0 - 98.0 2017 [place] HEMATOLOGY MCHC 31.6 32.0 - 36.0 2017 [place] HEMATOLOGY RDW 15.2 11.5 - 14.5 2017 [place] HEMATOLOGY MPV 9.7 7.4 - 10.4 2017 [place] HEMATOLOGY RBC 3.08 4.20 - 5.40 2017 [place] HEMATOLOGY Hgb 8.7 12.0 - 16.0 2017 [place] HEMATOLOGY WBC 6.6 3.7 - 10.4 2017 [place] HEMATOLOGY Hct 27.6 36.0 - 48.0 2017 [place] Pathology Reports No Data Provided for This Section Diagnostic Reports Report Value Date Source Spine lumbar wo EXAM: Spine lumbar wo contrast CT 04/13/[address] [place] [address] DATE: 04/13/2018 6:31 AM CDT . ORDERING PHYSICIAN: Hansel Hallman MD CLINICAL INDICATION: - lumbar stain, r/o disc p rolapse; COMPARISON: None available. TECHNIQUE: Volumetric acqui sition of the lumbar spine is obtained without contrast. 2mm axial, sagittal and coronal reconstructions are provided. This exam was performed acco rding to our departmental dose-optimization protocol, which includes automated exposure control, adjustment of the mA and/or kV according to patient size and/or use of iterative reconstruction technique. DLP: 567 mGy-cm DISCUSSION: There is likely subacute to chronic, approximately 50% L1 L1 superior endplate height loss with 2 mm retropulsion. There are bilateral Bosniak 1 cyst measuring up to 4.9 cm. 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 DISC SPACES, SPINAL CANAL, AND NEURAL FORAMINA: T12-L1. Disc height is maint ained. Retropulsed L1 superior endplate indents the thecal sac. Central canal measures greater than 13 mm. Lateral recesses are patent. Neural foramina are patent. L1-L2. Intervertebral disc height is maintained. Posterior elements are normal. There is no stenosis. L2-L3. Intervertebral disc height is maintained. There is bilateral facet hypertrophy. Central canal measures approximately 11 mm. Neural foramina are patent.. L3-L4. Mild loss of disc h eight with diffuse disc bulge. There is bilateral facet hypertrophy with ligamentous redundancy. Central canal measures approximately 7 mm. Lateral recesses are narrowed. The re is at least moderate narr owing of the right neural foramen and mild narrowing of left. L4-L5. Disc height is maint ained. There is a diffuse disc bulge. There is bilateral facet hypertrophy with ligamentous redundancy. Central canal measures approximately 6 mm. Lateral recesses are narrow ed. There is at least moderate narrowing of the neural foramina bilaterally. L5-S1. Disc height is main tained. There is left greater than right facet hypertrophy. Central canal measures approximately 10 mm. Lateral recesses are narrowed. Neural foramina are mildly narrowed. IMPRESSION: 1. L3-L4 and L4-L5 central canal stenosis 2. Neural foramen narrowings most substantial on the right at L3-L4 and bilaterally at L4-L5 3. Subacute to chronic L1 gupta perior endplate compression deformity with retropulsion but no associated central canal stenosis. There is point tenderness, further assessment with lumbar magnetic resonance imaging may be considered. Chest 1view DX Clinical History : , - chest pain , sob [place] Exam : Portable AP view of the chest 04/13/20 18 1:37 AM CDT Comparisons : PA and lateral views of the chest 08/15/2017 Findings : The lungs are clear without focal consolidation or pleural effusion. The heart is normal in size. The mediastinal contours are normal in appearance. The thoracic spine is age appropriate. The shou lders are unremarkable. Limited evaluation of the upper abdomen demonstr ates no gross abnormalities. Impression: No acute cardiopulmonary disease (stable appeari ng chest). Chest 2 views DX Clinical Indication: - cough, fever; 7 [facility] Comparison: None FINDINGS: PA and lateral vie ws of the chest. Cardiomediastinal silhouette is normal. Lung markings are coarse bilaterally, particularly in the bases. Mild interstitial thickening and trace fissural th ickening.. Slight loss of height of an upper tho racic vertebral body.. IMPRESSION: 1. Coarse bibasilar lung mar kings with trace interstitial thickening in the lower lobes. Most likely this reflects chronic changes however a superimposed atypical infection cannot be excluded. 2. Loss of height of an uppe r thoracic vertebral body may represent compression deformity of indeterminate age. No prior studies are available for comparison. SL: [id number] Consultation Notes No Data Provided for This Section Discharge Summaries No Data Provided for This Section History and Physicals No Data Provided for This Section Vital Signs Vital Sign Value Date Comments Source Systolic (mm Hg) 124 04/13/2018 [facility] [place] Diastolic (mm Hg) 70 04/13/2018 [place] and Respitory Rate 18 04/13/2018 [place] Heart Rate 84 04/13/2018 [place] Temperature Oral (F) 98.2 F 04/13/2018 [place] Systolic (mm Hg) 117 04/13/2018 [place] Diastolic (mm Hg) 70 04/13/2018 [place] L and Respitory Rate 18 04/13/2018 [place] Heart Rate 78 04/13/2018 [place] Temperature Oral (F) 98.3 F 04/13/2018 [place] Respitory Rate 18 04/13/2018 [place] Systolic (mm Hg) 117 04/13/2018 [place] Diastolic (mm Hg) 71 04/13/2018 [place] L and Heart Rate 87 04/13/2018 [place] Temperature Oral (F) 98.3 F 04/13/2018 [place] Weight 74.545 04/13/2018 [place] BMI Calculated 30.06 04/13/2018 [place] Height 157.48 cm 04/13/2018 [place] Weight 73.21 04/13/2018 [place] Weight 77.273 09/14/2017 [place] BMI Calculated 28.35 09/14/2017 [place] Height 165.1 cm 09/14/2017 [place] Systolic (mm Hg) 116 09/14/2017 [place] Diastolic (mm Hg) 70 09/14/2017 [place] Respitory Rate 16 09/14/2017 [place] Heart Rate 89 09/14/2017 [place] Temperature Oral (F) 98.6 F 09/14/2017 [place] Encounters Location Location Encounter Encounter Reason Attending ADM DC Stat us Source Details Type Number For Provider Date Date [facility] [id number] [place] 09/14 09/15 [place] /2016 [facility] Observation [id number] Susweita 04/13 04/13 [facility] [place] /2017 [facility] [place] Procedures Procedure Code Date Perfomer Comments Source Bilateral radical [id number] [place] mastectomy [place] Assessment and Plan No Data Provided for This Section Plan of Care No Data Provided for This Section Social History Social History Date Source Social History TypeResponse 04/13/2018 [place] Jovany d Substance Abuse Use: None. Exercise 1 Employment/School Status: Employed. 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 Alcohol Current, Frequency: 1-2 times per month. Previous treatment : None. Smoking Status Never smoker; Previous treatment: None; Ready to change: No; Concerns about tobacco use in household: No; Exposure to Tobacco Smoke None; Cigarette Smoking Last 365 Days No; Reg Smoking Cessation Counseling Yes entered on: 04/13/18 1none No data available for this 09/15/2017 Susie section Family History No Data Provided for This Section Advance Directives No Data Provided for This Section Functional Status No Data Provided for This Section
== END 2020-08-19 12:56 | disposition home or self-care (01) ==
LOC: ER 18:10 → ERHOLD 22:28 → 2ND 23:43
PROVIDERS: ADMIT Hospitalist; ATTEND Hospitalist
DX: I11.0 Hypertensive heart disease with heart failure (principal); I50.23 Acute on chronic systolic (congestive) heart failure; I27.20 Pulmonary hypertension, unspecified; Z85.3 Personal history of malignant neoplasm of breast; R07.9 Chest pain, unspecified
CPT/HCPCS: 96365; 93005; 87070; 85025 ×2; 80048 ×2; 36415; 83735; 85610; 80061; 80076; 87081; 84443; 84484 ×3; 84439; 83880; 87804 ×2; 71045; 96375; 99285; U0003; J0360; J1940 ×2; J1650; G0378 ×2

== ENCOUNTER 2021-03-21 02:00 | Observation (INO) | payer BC ==
--- OUTSIDE RECORDS SUMMARY | 2021-03-21 02:04 | XMS REPORT | Continuity of Care Document ---
:1960 Author Organization [facility] t Address [address] [place] [address] Care Team Providers Name Role Phone Pcp, Does Not Have A Attending Clinician Lab, Fam Pob I Attending Clinician Unavailable Singer VARGAS Attending Clinician Dennis Hallman Attending Clinician Michelle Garcia Attending Clinician [phone] Dennis Hallman Admitting Clinician Problems Condition Condition Condition Status Onset Resolution Last Treating Co mments Source Name Details Category Date Date Treatment Clinician Date FLU Diagnosis Active [id number] Mem oria 0-30 22:05:00 l FLU 00:00: [place] 00 Active 09/14/2017 [facility] Allergies, Adverse Reactions, Alerts This patient has no known allergies or adverse reactions. Social History Social Habit Start Date Stop Date Quantity Comments Source Social History 2018-04-13 2018-04-13 [facility] 09:48:07 09:48:07 Medications Ordered Filled Start Stop Current Ordering Indication Dosage Frequency Signature Comments Components Source Medication Medication Date Date Medication? Clinician (SIG) Name Name Hydrochloro 2017- No 1 tab, Karl bert thiazide 04-13 Route: PO, l MG / 14:00: Drug Form: [place] Lisinopril 00 TAB, 20 MG Oral Dosing Tablet Weight 74.545, kg, Daily, Start date: 04/13/18 9:00:00 CDT, Duration: 30 day, Stop date: 05/12/18 9:00:00 CDT hydrochloro No Notes: Karl bert thiazide 25 5-29 (Same as: l mg oral 14:00: Hydrodiuri Herm marcello tablet 00 l) With food. lisinopril No Notes: Memor ia 5-29 (Same as: l 14:00: Prinivil, [place] 00 Zestril) Docusate No Notes: Memoria 5-29 (Same as: l 14:00: Colace) [place] 00 (Do Not Crush) Protonix No Notes: Memoria 5-29 Tablet l 12:30: should not [place] 00 be chewed or crushed. (Same as: Protonix) Ondansetron No Notes: Karl bert 5-29 (Same as: l 11:27: Zofran) [place] 00 MEDICATION WASTE Product Size: 4 mg Product Wasted: ___ mg Acetaminoph Yes 3, PO, Karl bert en 500 MG 5-29 Daily, PRN l Oral Tablet 10:07: Pain Score [place] [Tylenol] 00 6-10, 0 Refill(s) Clonidine Yes 0.2 mg = 1 Me moria Hydrochlori 5-29 tab, PO, l de 0.2 MG 10:00: Bedtime, # He rmann Oral Tablet 00 60 tab, 0 Refill(s) Hydrochloro Yes 1 tab, PO, Memoria thiazide 25 5-29 Daily, # l MG / 10:00: 30 tab, 0 [place] Lisinopril 00 Refill(s) 20 MG Oral Tablet lisinopril No 20 mg = 1 Me moria 20 mg oral 5-29 tab, PO, l tablet 10:00: Daily, # [place] 00 30 tab, 0 Refill(s) Aspirin No 324 mg, Memoria 5-29 Route: PO, l 06:37: ONCE, [place] Dosing Weight 73.21, kg, Priority: STAT, Start date: 04/13/18 1:37:00 CDT, Stop date: 04/13/18 1:37:00 CDT Saline No Notes: Memoria Flush 0.9% 5-29 (Same as: l 06:37: BD [place] 00 Posiflush) Vital Signs Vital Name Observation Time Observation Value Comments Source Systolic (mm Hg) 2018-04-13 15:55:00 Karl rial [place] Diastolic (mm Hg) 2018-04-13 15:55:00 Mem orial [place] Respitory Rate 2018-04-13 15:55:00 Memori al [place] Heart Rate 2018-04-13 15:55:00 [facility] [place] Temperature Oral (F) 2018-04-13 15:55:00 98.2 F [facility] [place] Systolic (mm Hg) 2018-04-13 12:26:00 Karl rial [place] Diastolic (mm Hg) 2018-04-13 12:26:00 Mem orial [place] Respitory Rate 2018-04-13 12:26:00 Memori al [place] Heart Rate 2018-04-13 12:26:00 [facility] [place] Temperature Oral (F) 2018-04-13 12:26:00 98.3 F [facility] [place] Respitory Rate 2018-04-13 09:58:00 Memori al [place] Systolic (mm Hg) 2018-04-13 09:58:00 Karl rial [place] Diastolic (mm Hg) 2018-04-13 09:58:00 Mem orial [place] Heart Rate 2018-04-13 09:58:00 [facility] [place] Temperature Oral (F) 2018-04-13 09:58:00 98.3 F [facility] [place] Weight 2018-04-13 09:22:00 [facility] [place] BMI Calculated 2018-04-13 09:22:00 [facility] [place] Height 2018-04-13 09:22:00 157.48 cm [facility] [place] Weight 2018-04-13 06:00:00 [facility] [place] Systolic (mm Hg) 2017-09-14 19:55:00 Karl rial [place] Diastolic (mm Hg) 2017-09-14 19:55:00 Mem orial [place] Respitory Rate 2017-09-14 19:55:00 [facility] al [place] Heart Rate 2017-09-14 19:55:00 [facility] [place] Temperature Oral (F) 2017-09-14 19:55:00 98.6 F [facility] [place] Weight 2017-09-14 19:55:00 [facility] [place] BMI Calculated 2017-09-14 19:55:00 Andreskim Swanson Height 2017-09-14 19:55:00 165.1 cm [facility] [place] Procedures Procedure Date / Time Performed Performing Clinician Immanuel clemons Bilateral radical Bright Britta nn mastectomy Encounters Start End Encounter Admission Attending Care Care Encounter Source Date/Time Date/Time Type Type Clinicians Facility Department ID 2021-01-10 2021-01-10 Telephone PcpKILEY [id number] 00:00:00 00:00:00 Patient REYNA [id number] Does Not HOSPITAL [id number] Have A [id number] 2021-01-09 2021-01-09 Laboratory Lab, [facility] [id number] 08:23:44 08:43:44 Only Fam Pob [facility] [id number] [place] [id number] Professio [id number] nal [address] 2020-12-27 2020-12-27 Emergency Judd, [facility] [id number] 08:27:00 11:50:00 Ilir [place] [id number] [place] [id number] [place] [id number] 2018-04-13 2018-04-13 [place]patient DONATO Hallman [place] [id number] 00:54:00 15:29:00 Hansel Marjorie Dennis 2017-09-14 2017-09-14 Outpatient [facility] [id number] 14:29:00 22:01:00 christyrsphilipp, 00 Mirlande Martinez Results Test Description Test Time Test Comments Results Result Comments Source [facility] 2018-04-13 [facility] ENZYMES 2018-04-13 16:28:00 Test Item Value Reference Range Interpretation Comme nts CK MB Index (test code = CK 0.9 1 See_Comment [Automated message] The system which MB Index) generated this result transmitted reference range : <=2.5. The reference range was not u sed to interpret this result as yumi l/abnormal. [facility] [id number] 16:28:00<0.02[facility] CARDIAC [id number] 16:28:0086[facility] [id number] 11:44:000.02[facility]ann[facility]ARD[facility]AC [id number] 11:44:0085[facility] [place] CARDIAC [id number] 11:44:00 Test Item Value Reference Range Interpretation Comments CK MB Index (test 0.8 1 See_Comment [Automate d message] The code = CK MB Index) system w [facility] generated this result transmit jerome reference range : <=2.5. The reference range was not used to interpr et this result as yumi l/abnormal. [facility] [id number] 11:44:000.7[facility] HermannLIPIDS 2018-04-13 11:44:00 Test Item Value Reference Range Interpretation Comments CHD Risk (test code = CHD Risk) 3.24 1 3.90-5.80 [facility] [id number] 11:44:10260Kiwvpljw ZprkyarGODRMB7940-90-23 11:44:00 Test Item Value Reference Range Interpretation Comments VLDL (test code = VLDL) 26 1 [facility] [id number] 11:44:0050[facility] BehrfkfDZANLL2204-27-64 11:44:54478Rnahydsm MyghnknCJLGEK5024-92-95 11:44:0086[facility] HermannSPECIAL [id number] 11:44:004.6[facility] ZlrtwdtVNHFRQQKOX2867-33-25 07:08:0089.6 [facility] UscvmjbYDHJNGDSGV9870-24-83 07:08:0031.6[facility] HermannHEMATOLOGY 2018-04-13 07:08:0015.2[facility] HzzfdjtJVZEQZTGKW7831-08-23 07:08:009.7[facility] SjrqqygIGWHEEAHBR3202-51-52 07:08:003.08[facility] GalnbnvTUGCZJUUDR5820-02-87 07:08:008.7[facility] LodxpavKQFIMDAQOR1562-22-55 07:08:006.6[facility] [place] [id number] 07:08:0027.6[facility] HermannCARDIAC [id number] 07:08:00 Test Item Value Reference Range Interpretation Comments CK MB Index (test 0.9 1 See_Comment [Automate d message] The code = CK MB Index) system w [facility] generated this result transmit jerome reference range : <=2.5. The reference range was not used to interpr et this result as yumi l/abnormal. [facility]annCARDIAC [id number] 07:08:007[facility]annCARDIAC [id number] 07:08:001.0[facility]annCARDIAC [id number] 07:08:00 0.02[facility] HermannCARDIAC [id number] 07:08:87429Jgqekfap HermannCHEM [id number] 07:08:0044[facility] HermannCHEM [id number] 07:08:0054 [facility]annCHEM [id number] 07:08:00 Test Item Value Reference Range Interpretation Comments B/C Ratio (test code = B/C Ratio) 30 1 6-25 [facility] HermannCHEM [id number] 07:08:004.4[facility] HermannCHEM PANEL 2018-04-13 07:08:000.2[facility] HermannCHEM [id number] 07:08:0010.6[facility] HermannCHEM [id number] 07:08:00 Test Item Value Reference Range Interpretation Comments A/G Ratio (test code = A/G Ratio) 0.9 1 0.7-1.6 [facility]annCHEM [id number] 07:08:0026[facility] HermannCHEM PANEL 2018-04-13 07:08:009.2[facility] HermannCHEM [id number] 07:08:0014[facility] HermannCHEM [id number] 07:08:0015[facility] HermannCHEM [id number] 07:08:008.2[facility] HermannCHEM [id number] 07:08:003.8[facility] HermannCHEM [id number] 07:08:0046[facility] HermannCHEM GGRGV9954-10-07 07:08:0098 [facility]annCHEM [id number] 07:08:003.6[facility] HermannCHEM PANEL 2018-04-13 07:08:02522Sryosxky HermannCHEM [id number] 07:08:001.51[facility] HermannCHEM [id number] 07:08:49664Lmaofldv BouivqoIIZDMPEYHF1202-37-48 07:08:000.6[facility] KhbkskkWCJJKKPVKR8505-33-05 07:08:003.5[facility] [id number] 07:08:002.4[facility] GswvyowGDZSEUKMBJ0225-21-10 07:08:003.1 [facility] KwqemwjZIQWRHJTOF2368-83-00 07:08:006.3[facility] HermannHEMATOLOGY 2018-04-13 07:08:000.2[facility] DgceigcEJUJZHCUJN4813-66-28 07:08:000.0[facility] QywbzubUQKBBUGNXN6243-91-97 07:08:000.4[facility] SyspqqsEKTPPJOJZP1425-56-17 07:08:0036.9[facility] UzrpbbaCYNBLTQDJK5778-03-03 07:08:0053.1[facility] [place] [id number] 07:08:57678Kuwqxvlk IrpyvgrZAGTTNHZFG7145-97-78 07:08:00 Test Item Value Reference Range Interpretation Comments MCH (test code = MCH) 28.3 pg 27.0-31.0 [facility]
[2021-03-21 03:08] LABS: Absolute Lymphocytes (CBC) 2.3 K/uL (0.7-4.9); Basophils % 1.3 % (0-1.3); Hematocrit 34.7 % (36.0-45.0); Lymphocytes % 34.4 % (15.3-44.8); MPV 8.8 fL (7.6-11.3); RBC Red Blood Cell Count 3.93 M/uL (3.86-4.86)
[2021-03-21 03:28] LABS: Protime INR 1.02
[2021-03-21 03:36] LABS: ALT/SGPT 10 U/L (12-78); AST/SGOT 12 U/L (15-37); Albumin 3.4 g/dL (3.4-5.0); Alkaline Phosphatase 81 U/L (45-117); BUN Blood Urea Nitrogen 14 mg/dL (7-18); Bicarbonate 27 mmol/L (21-32); Bilirubin Direct < 0.1 mg/dL (0-0.2); Bilirubin Total 0.4 mg/dL (0.2-1.0); Glucose Level 98 mg/dL (74-106); Magnesium 2.1 mg/dL (1.8-2.4); NT PRO-BNP 682 pg/mL (<125); Potassium 3.5 mmol/L (3.5-5.1); Protein, Total 8.9 g/dL (6.4-8.2); Sodium Level 143 mmol/L (136-145); Troponin (Emerg Dept Use Only) < 0.02 ng/mL (0.0-0.045)
--- NOTE | 2021-03-21 03:42 | ER ---
Nurse's Notes [facility] Name: Mary Rodriguez Age: 60 yrs Sex: Female : 1960 Arrival Date: 03/21/2021 Time: 02:03 Bed 4 Private MD: Diagnosis: Acute on chronic systolic (congestive) heart failure;Chest pain, unspecified Presentation: 03/21 02:17 Chief complaint: Patient states: is having difficulty breathing since Thursday, worse on iw exertion ,feels like her heart is racing, has been seen for this in the past , thinks she has mold in her house that makes breathing worse. Coronavirus screen: At this time, the client does not indicate any symptoms associated with coronavirus-19. Ebola Screen: Patient negative for fever greater than or equal to 101.5 degrees Fahrenheit, and additional compatible Ebola Virus Disease symptoms Patient denies exposure to infectious person. Patient denies travel to an Ebola-affected area in the 21 days before illness onset. No symptoms or risks identified at this time. Initial Sepsis Screen: Does the patient meet any 2 criteria? No. Patient's initial sepsis screen is negative. Does the patient have a suspected source of infection? No. Patient's initial sepsis screen is negative. Risk Assessment: Do you want to hurt yourself or someone else? Patient reports no desire to harm self or others. Onset of symptoms was March 2021. 02:17 Method Of Arrival: Ambulatory iw 02:17 Acuity: PILY 3 iw Historical: - Allergies: 02:21 No Known Allergies; iw - Home Meds: 02:21 unknown BP med [Active]; iw - PMHx: 02:21 breast cancer; Hypertension; iw - PSHx: 02:21 breast cancer; Mastectomy, Left; Mastectomy, Right; Hysterectomy; iw - Immunization history:: Adult Immunizations not up to date, Client reports receiving the 2nd dose of the Covid vaccine. - Social history:: Smoking status: Patient denies any tobacco usage or history of. - Family history:: not pertinent. Screenin:32 Abuse screen: Denies threats or abuse. Denies injuries from another. Nutritional rr5 screening: No deficits noted. Tuberculosis screening: No symptoms or risk factors identified. Fall Risk IV access (20 points). Total Zapata Fall Scale indicates No Risk (0-24 pts). Assessment: 02:33 General: Appears in no apparent distress. uncomfortable, Behavior is calm, cooperative, rr5 appropriate for age. Pain: Complains of pain in chest Pain currently is 5 out of 10 on a pain scale. Quality of pain is described as aching, Pain began gradually, Is intermittent. Neuro: Level of Consciousness is awake, alert, obeys commands, Oriented to person, place, time. Cardiovascular: Reports chest pain, heart racing Capillary refill < 3 seconds Patient's skin is warm and dry. Respiratory: Reports shortness of breath Airway is patent Respiratory effort is even, unlabored, Respiratory pattern is regular, symmetrical. GI: No signs and/or symptoms were reported involving the gastrointestinal system. : No signs and/or symptoms were reported regarding the genitourinary system. EENT: No signs and/or symptoms were reported regarding the EENT system. Derm: Skin is intact, is healthy with good turgor, Skin temperature is warm. Musculoskeletal: Capillary refill < 3 seconds. 03:30 Reassessment: Patient appears in no apparent distress at this time. Patient is alert, rr5 oriented x 3, equal unlabored respirations, skin warm/dry/pink. awaiting for results. 04:30 Reassessment: Patient appears in no apparent distress at this time. Patient is alert, rr5 oriented x 3, equal unlabored respirations, skin warm/dry/pink. for admission, voided freely post lasix noted. 05:20 Reassessment: Patient appears in no apparent distress at this time. resting eyes closed rr5 breathing spontaneously at room air. 06:21 Reassessment: Patient appears in no apparent distress at this time. Patient is alert, rr5 oriented x 3, equal unlabored respirations, skin warm/dry/pink. Patient states feeling better. Patient states symptoms have improved. 08:28 General: Appears in no apparent distress. comfortable, Behavior is calm, cooperative, ld1 appropriate for age. Pain: Denies pain. Neuro: Level of Consciousness is awake, alert, obeys commands, Oriented to person, place, time, situation. Cardiovascular: Denies chest pain, Capillary refill < 3 seconds Patient's skin is warm and dry. Rhythm is sinus tachycardia. Respiratory: Airway is patent Respiratory effort is even, unlabored, Respiratory pattern is regular, symmetrical. GI: Abdomen is flat, non-distended. : No signs and/or symptoms were reported regarding the genitourinary system. EENT: No signs and/or symptoms were reported regarding the EENT system. Derm: Skin is intact, is healthy with good turgor, Skin temperature is warm. Musculoskeletal: No signs and/or symptoms reported regarding the musculoskeletal system. 08:47 Reassessment: Report attempted, left on hold for 15 minutes. Will try again. ld1 08:54 Reassessment: Patient appears in no apparent distress at this time. Patient and/or jd3 family updated on plan of care and expected duration. Pain level reassessed. Patient is alert, oriented x 3, equal unlabored respirations, skin warm/dry/pink. report given to Shanti ALLISON, nurse for room 213 Patient denies pain at this time. Vital Signs: 02:17 BP 165 / 104; Pulse 115; Resp 20 S; Temp 98.2; Pulse Ox 100% on R/A; Weight 72.57 kg; iw Height 5 ft. 2 in. (157.48 cm); 03:58 BP 150 / 105; Pulse 99; Resp 19; Pulse Ox 98% ; rr5 05:00 BP 145 / 89; Pulse 95; Resp 17; Pulse Ox 98% ; rr5 06:00 BP 147 / 93; Pulse 97; Resp 17; Pulse Ox 100% ; rr5 08:28 BP 148 / 129; Pulse 103; Resp 17; Pulse Ox 97% on R/A; Pain 0/10; ld1 02:17 Body Mass Index 29.26 (72.57 kg, 157.48 cm) iw ED Course: 02:03 Patient arrived in ED. bp1 02:19 Triage completed. iw 02:21 Arm band placed on. iw 02:26 Juan Knox, RN is Primary Nurse. rv 02:27 Ev Wallace MD is Attending Physician. ma2 02:31 Vernon Arias, RN is Primary Nurse. rr5 02:32 Patient has correct armband on for positive identification. Placed in gown. Bed in low rr5 position. Call light in reach. early childhood educator aide on. Pulse ox on. NIBP on. 02:32 EKG done, by ED staff, reviewed by Ev Wallace MD. rr5 02:36 Inserted saline lock: 20 gauge in left forearm, using aseptic technique. ,using aseptic rr5 technique. inserted by mac Blood collected. 03:41 Gurwinder Ambrosio DO is Hospitalizing Provider. ma2 03:48 XRAY Chest (1 view) In Process Unspecified. EDMS 06:22 No provider procedures requiring assistance completed. Patient admitted, IV remains in rr5 place. intact, No redness/swelling at site. 06:22 Patient maintains SpO2 saturation greater than 95% on room air. rr5 06:30 Urine collected: clean catch specimen, clear. rr5 Administered Medications: 03:57 Drug: Lasix (furosemide) 40 mg Route: IVP; Site: left forearm; rr5 05:00 Follow up: Response: No adverse reaction rr5 03:57 Drug: Aspirin Chewable Tablet 324 mg Route: PO; rr5 05:00 Follow up: Response: No adverse reaction rr5 Outcome: 03:41 Decision to Hospitalize by Provider. ma2 06:22 Admitted to ER Hold. Please see [facility] for further documentation. rr5 06:22 Condition: stable 06:22 Instructed on the need for admit. 08:54 Admitted to Med/surg accompanied by nurse, via wheelchair, room 213, with chart, Report jd3 called to Shanti ALLISON 08:54 Instructed on the need for admit. 09:26 Patient left the ED. jd3 Signatures: Dispatcher [employer] Faye Oliveros, RN Ever Pringle RN RN jd3 Ev Wallace MD MD ma2 Juan Knox RN RN rv Roque, Raymond RN RN rr5 Mary Kay Ortiz Lauren RN RN ld1
--- NOTE | 2021-03-21 03:42 | EDPHYS ---
Physician Documentation [facility] Name: Mary Rodriguez Age: 60 yrs Sex: Female : 1960 Arrival Date: 03/21/2021 Time: 02:03 Bed 4 Private MD: ED Physician Ev Wallace HPI: 03/21 03:35 This 60 yrs old Black Female presents to ER via Ambulatory with complaints of Chest ma2 Pain. 03:35 The patient or guardian reports chest pain that is located primarily in the anterior ma2 chest wall. Onset: gradually, 3 day(s) ago. Associated signs and symptoms: Pertinent negatives: cough, dizziness, lower extremity pain. Severity of pain: At its worst the pain was moderate in the emergency department the pain is unchanged. The patient has experienced similar episodes in the past, hx of chf . Historical: - Allergies: 02:21 No Known Allergies; iw - Home Meds: 02:21 unknown BP med [Active]; iw - PMHx: 02:21 breast cancer; Hypertension; iw - PSHx: 02:21 breast cancer; Mastectomy, Left; Mastectomy, Right; Hysterectomy; iw - Immunization history:: Adult Immunizations not up to date, Client reports receiving the 2nd dose of the Covid vaccine. - Social history:: Smoking status: Patient denies any tobacco usage or history of. - Family history:: not pertinent. ROS: 03:35 Constitutional: Negative for fever, chills, and weight loss. ma2 03:35 All other systems are negative. Exam: 03:35 Constitutional: This is a well developed, well nourished patient who is awake, alert, ma2 and in no acute distress. Head/Face: Normocephalic, atraumatic. Eyes: Pupils equal round and reactive to light, extra-ocular motions intact. Lids and lashes normal. Conjunctiva and sclera are non-icteric and not injected. Cornea within normal limits. Periorbital areas with no swelling, redness, or edema. ENT: Nares patent. No nasal discharge, no septal abnormalities noted. Tympanic membranes are normal and external auditory canals are clear. Oropharynx with no redness, swelling, or masses, exudates, or evidence of obstruction, uvula midline. Mucous membranes moist. Neck: Trachea midline, no thyromegaly or masses palpated, and no cervical lymphadenopathy. Supple, full range of motion without nuchal rigidity, or vertebral point tenderness. No Meningismus. Chest/axilla: Normal chest wall appearance and motion. Nontender with no deformity. No lesions are appreciated. Cardiovascular: Regular rate and rhythm with a normal S1 and S2. No gallops, murmurs, or rubs. Normal PMI, no JVD. No pulse deficits. Respiratory: Lungs have equal breath sounds bilaterally, clear to auscultation and percussion. No rales, rhonchi or wheezes noted. No increased work of breathing, no retractions or nasal flaring. Abdomen/GI: Soft, non-tender, with normal bowel sounds. No distension or tympany. No guarding or rebound. No evidence of tenderness throughout. Back: No spinal tenderness. No costovertebral tenderness. Full range of motion. Skin: Warm, dry with normal turgor. Normal color with no rashes, no lesions, and no evidence of cellulitis. MS/ Extremity: Pulses equal, no cyanosis. Neurovascular intact. Full, normal range of motion. Neuro: Awake and alert, GCS 15, oriented to person, place, time, and situation. Cranial nerves II-XII grossly intact. Motor strength 5/5 in all extremities. Sensory grossly intact. Cerebellar exam normal. Normal gait. Vital Signs: 02:17 BP 165 / 104; Pulse 115; Resp 20 S; Temp 98.2; Pulse Ox 100% on R/A; Weight 72.57 kg; iw Height 5 ft. 2 in. (157.48 cm); 03:58 BP 150 / 105; Pulse 99; Resp 19; Pulse Ox 98% ; rr5 05:00 BP 145 / 89; Pulse 95; Resp 17; Pulse Ox 98% ; rr5 06:00 BP 147 / 93; Pulse 97; Resp 17; Pulse Ox 100% ; rr5 08:28 BP 148 / 129; Pulse 103; Resp 17; Pulse Ox 97% on R/A; Pain 0/10; ld1 02:17 Body Mass Index 29.26 (72.57 kg, 157.48 cm) iw MDM: 02:27 Patient medically screened. ma2 03:35 Differential diagnosis: abnormal EKG, gastroesophageal reflux disease (GERD), stable ma2 angina, chf. 03:41 The patient was given aspirin in the Emergency Department. Data reviewed: vital signs, ma2 nurses notes. Counseling: I had a detailed discussion with the patient and/or guardian regarding: the historical points, exam findings, and any diagnostic results supporting the discharge/admit diagnosis, the presence of at least one elevated blood pressure reading (>120/80) during this emergency department visit, the need for further work-up and treatment in the hospital. 03/21 02:31 Order name: Basic Metabolic Panel; Complete Time: 03:39 ma2 03/21 02:31 Order name: CBC with Diff; Complete Time: 03:36 ma2 03/21 02:31 Order name: LFT's; Complete Time: 03:39 [facility] 03/21 02:31 Order name: Magnesium; Complete Time: 03:39 nc03/21 02:31 Order name: NT PRO-BNP; Complete Time: 03:39 nc03/21 02:31 Order name: PT-INR; Complete Time: 03:36 [facility] 03/21 02:31 Order name: Troponin (emerg Dept Use Only); Complete Time: 03:39 [facility] 03/21 03:58 Order name: COVID-19 : Document "Date of Symptom Onset" if Symptomatic. rv 03/21 05:57 Order name: SARS-COV-2 RT PCR [facility] 03/21 06:18 Order name: Urine Microscopic Only rr5 03/21 06:24 Order name: Urine Dipstick-Ancillary [facility] 03/21 07:08 Order name: Urine Microscopic Only [facility] 03/21 07:22 Order name: Troponin I [facility] 03/21 07:22 Order name: Lipid Profile [facility] 03/21 02:31 Order name: XRAY Chest (1 view) [facility] 03/21 02:31 Order name: EKG; Complete Time: 02:32 nc2 03/21 02:31 Order name: Cardiac monitoring; Complete Time: 02:31 [facility] 03/21 02:31 Order name: EKG - Nurse/Tech; Complete Time: 02:31 [facility] 03/21 02:31 Order name: IV Saline Lock; Complete Time: 02:31 nc03/21 02:31 Order name: Labs collected and sent; Complete Time: 02:31 [facility] 03/21 02:31 Order name: O2 Per Protocol; Complete Time: 02:31 nc03/21 02:31 Order name: O2 Sat Monitoring; Complete Time: 02:31 ma2 03/21 04:17 Order name: CONS Physician Consult EDMS 03/21 06:18 Order name: Urine Dipstick-Ancillary (obtain specimen); Complete Time: 06:19 rr5 03/21 07:22 Order name: T4 Free EDMS 03/21 07:22 Order name: Thyroid Stimulating Hormone EDUT Administered Medications: 03:57 Drug: Lasix (furosemide) 40 mg Route: IVP; Site: left forearm; rr5 05:00 Follow up: Response: No adverse reaction rr5 03:57 Drug: Aspirin Chewable Tablet 324 mg Route: PO; rr5 05:00 Follow up: Response: No adverse reaction rr5 Disposition: 03/21/21 03:41 Hospitalization ordered by Gurwinder Ambrosio for Inpatient Admission. Preliminary diagnosis are Acute on chronic systolic (congestive) heart failure, Chest pain, unspecified. - Bed requested for Telemetry/MedSurg (Inpatient). - Status is Inpatient Admission. jd3 - Condition is Stable. - Problem is new. - Symptoms are unchanged. Signatures: Dispatcher [employer] [facility] Rachel Parkinson RN RN Faye Eli RN RN Delmis Mcclain RN RN tl1 Ever Lu RN RN jd3 Alzahri, Mohammad, MD MD ma2 Vernon Arias, RN RN rr5 Corrections: (The following items were deleted from the chart) 04:39 03:41 Hospitalization Ordered by Gurwinder Ambrosio DO for Inpatient Admission. Preliminary tl1 diagnosis is Acute on chronic systolic (congestive) heart failure; Chest pain, unspecified. Bed requested for Telemetry/MedSurg (Inpatient). Status is Inpatient Admission. Condition is Stable. Problem is new. Symptoms are unchanged. ma2 08:28 04:39 03/21/2021 03:41 Hospitalization Ordered by Gurwinder Ambrosio DO for Inpatient dw Admission. Preliminary diagnosis is Acute on chronic systolic (congestive) heart failure; Chest pain, unspecified. Bed requested for [facility] ER HOLD. Status is Inpatient Admission. Condition is Stable. Problem is new. Symptoms are unchanged. tl1 09:26 08:28 03/21/2021 03:41 Hospitalization Ordered by Gurwinder Ambrosio DO for Inpatient jd3 Admission. Preliminary diagnosis is Acute on chronic systolic (congestive) heart failure; Chest pain, unspecified. Bed requested for Telemetry/MedSurg (Inpatient). Status is Inpatient Admission. Condition is Stable. Problem is new. Symptoms are unchanged. dw
[2021-03-21] MEDS ORDERED: ASPIRIN 81 MG CHEWABLE TABLET ONE (04:10)
[2021-03-21] MEDS ORDERED: FUROSEMIDE 40 MG/4 ML VIAL ONE ×2 (04:10→08:29)
--- NOTE | 2021-03-21 04:47 | P.HP ---
Certification for Inpatient Patient admitted to: Observation With expected LOS: <2 Midnights Patient will require the following post-hospital care: None Practitioner: I am a practitioner with admitting privileges, knowledge of patient current condition, hospital course, and medical plan of care. Services: Services provided to patient in accordance with Admission requirements found in Title 42 Section 412.3 of the Code of Federal Regulations Patient History Date of Service: 03/21/21 Primary Care Provider: Naun Reason for admission: chest pain, CHF History of Present Illness: Ms. Rodriguez is a 60 yo female with CHF and HTN here today with 10/10 intermittent sharp sternal chest tightness and worsening SOB and ESCALANTE. She says the pain usually occurs while she is sitting down. She says she was admitted for these symptoms once before. She reports cough, wheezing, edema, orthopnea, diaphoresis and chills. Denies PND, lightheadedness, nausea. BNP 682. Initial trop wnl. Unknown if she has been taking Lasix at home. Allergies No Known Drug Allergies Allergy (Verified 04/02/15 05:54) Unknown Home Medications: Aspirin [Aspirin EC 81 MG] 81 mg PO DAILY 30 Days #30 tablet. 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 - Family History Father -: Heart disease, Hypertension, Diabetes Mother -: Hypertension, Diabetes - Social History Smoking Status: Never smoker Alcohol use: No CD- Drugs: No Caffeine use: Yes Place of Residence: Home Review of Systems General: Unremarkable Eyes: Unremarkable ENT: Unremarkable Respiratory: Cough, Shortness of Breath, SOB with Excertion, Wheezing, As per HPI Cardiovascular: Chest Pain, Orthopnea, Edema, As per HPI Gastrointestinal: Unremarkable Genitourinary: Unremarkable Musculoskeletal: Unremarkable Integumentary: Unremarkable Neurological: Unremarkable Lymphatics: Unremarkable Physical Examination - Physical Exam General: Alert, In no apparent distress, Oriented x3, Cooperative HEENT: Atraumatic, Normocephalic, PERRLA, Mucous membr. moist/pink, EOMI, Sclerae nonicteric Neck: Supple, 2+ carotid pulse no bruit, JVD not distended, No Thyromegaly, No LAD Respiratory: Normal air movement, Crackles/rales Cardiovascular: No edema, Normal pulses, Normal S1 S2, No gallops, No rubs, No murmurs Capillary refill: <2 Seconds Gastrointestinal: Normal bowel sounds, Soft and benign, Non-distended, No ascites, No tenderness, No masses, No rebound, No guarding Musculoskeletal: No clubbing, No swelling, No contractures, No erythema, No tenderness, No warmth Integumentary: No rashes, No breakdown, No significant lesion, No tenderness/swelling, No erythema, No warmth, No cyanosis Neurological: Normal gait, Normal speech, Normal strength at 5/5 x4 extr, Normal tone, Sensation intact, Cranial nerves 3-12 intact, Normal affect Lymphatics: No axilla or inguinal lymphadenopathy - Studies Laboratory Data (last 24 hrs) 03/21/21 02:35: PT 11.7, INR 1.02 03/21/21 02:35: WBC 6.60, Hgb 11.6 L, Hct 34.7 L, Plt Count 277 03/21/21 02:35: Sodium 143, Potassium 3.5, BUN 14, Creatinine 0.82, Glucose 98, Magnesium 2.1, Total Bilirubin 0.4, AST 12 L, ALT 10 L, Alkaline Phosphatase 81 Assessment and Plan - Plan Cardiology consulted IV Lasix BID, fluid restrict, O2 as needed trend troponins and EKg daily aspirin & statin, PRN morphine and NTG lipid panel, TSH/T4 pending Lovenox for DVT ppx Discharge Plan: Home Plan to discharge in: 24 Hours - Advance Directives Does patient have a Living Will: No Does patient have a Durable POA for Healthcare: No - Code Status/Comfort Care Code Status Assessed: Yes (full code) Critical Care: No Time Spent Managing Pts Care (In Minutes): 70
[2021-03-21] MEDS ORDERED: NITROGLYCERIN 0.4 MG/TAB SL PRN (06:20)
[2021-03-21] MEDS ORDERED: ACETAMINOPHEN 500 MG TAB PO PRN (06:20)
[2021-03-21] MEDS ORDERED: ONDANSETRON 4 MG/2 ML VIAL IV PRN (06:20)
[2021-03-21] MEDS ORDERED: MORPHINE 2 MG/ML SYR IV PRN (06:20)
[2021-03-21 06:24] LABS: Urine Blood Negative (Negative); Urine Glucose Negative (Negative); Urine Protein Negative (Negative)
[2021-03-21 07:07] LABS: Urine Bacteria NONE SEEN /HPF (<20); Urine RBC NONE SEEN /HPF (NONE SEEN)
--- NOTE | 2021-03-21 07:18 | EKG ---
Test Date: 2021-03-21 Test Time: 02:29:26 Sheet Metal Helper: AISLINN MEASUREMENT RESULTS: Intervals: Rate: 111 AL: 168 QRSD: 88 QT: 336 QTc: 456 Moody: P: 61 AL: 168 QRS: 9 T: 80 INTERPRETIVE STATEMENTS: Sinus tachycardia Biatrial enlargement Left ventricular hypertrophy Nonspecific T wave abnormality Abnormal ECG Compared to ECG 08/18/2020 18:28:44 Left ventricular hypertrophy now present T-wave abnormality now present Electronically Signed On 03-21-21 07:17:29 CDT by Travis Cross
[2021-03-21 07:22] LABS: HDL Cholesterol 87 mg/dL (40-60); LDL Cholesterol, Calculated 91 (<130); Troponin I < 0.02 ng/mL (0.0-0.045)
[2021-03-21] MEDS: FUROSEMIDE 40 MG/4 ML VIAL IV SCH ×2 (08:26→16:55)
[2021-03-21] MEDS ORDERED: ENOXAPARIN 40 MG/0.4 ML SQ ONE (08:29)
[2021-03-21] MEDS ORDERED: lisinopriL 10 MG TAB ONE (08:29)
[2021-03-21] MEDS ORDERED: lisinopriL 10 MG TAB PO SCH (09:00)
[2021-03-21] MEDS ORDERED: ENOXAPARIN 40 MG/0.4 ML SQ SCH (09:00)
[2021-03-21] MEDS ORDERED: ASPIRIN EC 81 MG TAB PO SCH (09:00)
--- NOTE | 2021-03-21 09:06 | RAD REPORT ---
EXAM DESCRIPTION: RAD - Chest Single View - 03/21/2021 3:48 am CLINICAL HISTORY: CHEST PAIN Chest pain. COMPARISON: Chest Single View dated 08/18/2020; CHEST SINGLE VIEW dated 04/02/2015; CHEST PA AND LAT 2 VIEW dated 08/01/2008; LYMPHOSCINTIGRAPHY dated 08/08/2008; CTANGIO CHEST FOR PE dated 04/02/2015 FINDINGS: Portable technique limits examination quality. Moderate bilateral pulmonary opacities are present probably representing pulmonary edema. The heart i s mildly prominent in size. No displaced fractures.
[2021-03-21 09:52] VITALS: BMI 29.2
[2021-03-21] MEDS ORDERED: POTASSIUM CL SA 10 MEQ TAB PO ONE (17:00)
[2021-03-21 19:14] VITALS: BP 119/70; TEMP 98.3
--- NOTE | 2021-03-21 19:17 | P.DS ---
Admission Date: 03/21/21 Discharge Date: 03/21/21 Primary Care Provider: Naun Disposition: ROUTINE DISCHARGE Discharge Condition: FAIR Reason for Admission: chest pain, CHF Consultations: Cardiology-Dr. Cross - Problems (1) Acute on chronic systolic (congestive) heart failure Current Visit: Yes Status: Acute (2) Hypertension Onset Date: 04/02/15 Current Visit: No Status: Acute Brief History of Present Illness: 60 yo woman with CHF and HTN presented with a complaint of 10/10 intermittent sharp sternal chest tightness and worsening SOB and ESCALANTE. Symptoms associated with cough, wheezing, edema, orthopnea, diaphoresis and chills. In the ED, BNP 682. Initial trop negative. Chest x-ray demonstrated bilateral pulmonary edema. Patient hospitalized for further management. Hospital Course: Patient placed under observation on the medical floor and treated with IV Lasix. She diuresed well and her symptoms resolved. Troponin trended negative. Patient is currently at baseline. She was seen by cardiology-Dr. Cross, no further recommendation made. Patient deemed stable for discharge per cardiology. No changes made in her medications. 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 Vital Signs/Physical Exam: Temp Pulse Resp BP Pulse Ox 97.9 F 98 H 18 156/90 H 100 03/21/21 12:00 03/21/21 12:00 03/21/21 12:00 03/21/21 12:00 03/21/21 12:00 General: Alert, In no apparent distress HEENT: Mucous membr. moist/pink Neck: Supple, JVD not distended Respiratory: Clear to auscultation bilaterally, Normal air movement Cardiovascular: No edema, Regular rate/rhythm, Normal S1 S2 Gastrointestinal: Normal bowel sounds, Soft and benign, Non-distended, No tenderness Musculoskeletal: No swelling, No tenderness Integumentary: No rashes, No erythema Neurological: Normal strength at 5/5 x4 extr, Cranial nerves 3-12 intact Laboratory Data at Discharge: WBC 6.60 K/uL (4.3-10.9) 03/21/21 02:35 Hgb 11.6 g/dL (12.0-15.0) L 03/21/21 02:35 Hct 34.7 % (36.0-45.0) L 03/21/21 02:35 Plt Count 277 K/uL (152-406) 03/21/21 02:35 PT 11.7 SECONDS (9.5-12.5) 03/21/21 02:35 INR 1.02 03/21/21 02:35 Sodium 143 mmol/L (136-145) 03/21/21 02:35 Potassium 3.5 mmol/L (3.5-5.1) 03/21/21 02:35 BUN 14 mg/dL (7-18) 03/21/21 02:35 Creatinine 0.82 mg/dL (0.55-1.3) 03/21/21 02:35 Glucose 98 mg/dL (74-106) 03/21/21 02:35 Magnesium 2.1 mg/dL (1.8-2.4) 03/21/21 02:35 Total Bilirubin 0.4 mg/dL (0.2-1.0) 03/21/21 02:35 AST 12 U/L (15-37) L 03/21/21 02:35 ALT 10 U/L (12-78) L 03/21/21 02:35 Alkaline Phosphatase 81 U/L (45-117) 03/21/21 02:35 Troponin I < 0.02 ng/mL (0.0-0.045) 03/21/21 10:23 Triglycerides 41 mg/dL (<150) 03/21/21 06:25 Cholesterol 186 mg/dL (<200) 03/21/21 06:25 HDL Cholesterol 87 mg/dL (40-60) H 03/21/21 06:25 Cholesterol/HDL Ratio 2.14 03/21/21 06:25 Home Medications: Aspirin [Aspirin EC 81 MG] 81 mg PO DAILY 30 Days #30 tablet. 08/19/20 Furosemide [Lasix] 40 mg PO DAILY 30 Days #30 tablet 08/19/20 Metoprolol Tartrate [Lopressor*] 1 tab PO BID 30 Days #60 tab 08/19/20 Atorvastatin Calcium [Lipitor*] 20 mg PO BEDTIME #30 tab 03/21/21 Nitroglycerin [Nitrostat*] 0.4 mg SL UD PRN #20 tab 03/21/21 lisinopriL [Prinivil*] 10 mg PO DAILY #30 tab 03/21/21 New Medications: Atorvastatin Calcium [Lipitor*] 20 mg PO BEDTIME #30 tab Nitroglycerin [Nitrostat*] 0.4 mg SL UD PRN #20 tab PRN Reason: Pain Scale 2-4 (Mild) lisinopriL [Prinivil*] 10 mg PO DAILY #30 tab Followup: Unknown,U [Primary Care Provider] - 1 Week
[2021-03-21 20:19] VITALS: O2SAT 98
[2021-03-21] MEDS ORDERED: ATORVASTATIN 20 MG TAB PO SCH (21:00)
--- NOTE | 2021-03-26 08:58 | CON ---
Date of Consultation: 03/21/2021 Reason For Consultation: Chest pain. History Of Present Illness: Ms. Rodriguez is a 60-year-old white woman. She is a patient of Dr. Ted oliver . No nausea, vomiting, diaphoresis, PND, orthopnea, pedal edema, palpitations, or sync ope. Pain was worse with breathing. It does not radiate with moderate pulmonary hyperten areli. Dr. Doss is following up on that. Past Medical History: As stated above. Allergies: NONE. Review of Systems: Negative. Social History: Negative. Family History: Negative. Medications: At home include aspirin, Lasix, metoprolol . Physical Examination: Vital Signs: Stable. She is afebrile. HEENT: Negative. Neck: Supple without any bruit, lymphadenopathy, JVD, or thyromegaly. Chest: Clear to auscultation and percussion. Cardiac: Revealed a regular rhythm and rate. No S4 gallops. No murmurs or rubs. Abdomen: Benign. Extremities: Revealed no clubbing, cyanosis, edema. Diagnostic Data: As stated earlier. Troponin is negative. Her BNP is . Her EKG is nonsp ecific. negative. Impression And Plan: 1.Atypical chest pain. 2.Chronic systolic congestive heart failure. 3.Hypertension. 4.Dyslipidemia. 5.Moderate pulmonary hypertension. She is currently feeling much better. I think her pain __. NB/MODL Voice ID: [id number] Report ID: [id number]
== END 2021-03-21 20:18 | disposition home or self-care (01) ==
LOC: ER 02:00 → ERHOLD 04:20 → 2ND 08:56
PROVIDERS: ADMIT Internal Medicine; ATTEND Internal Medicine
DX: I11.0 Hypertensive heart disease with heart failure (principal); I50.23 Acute on chronic systolic (congestive) heart failure; Z20.822 Contact with and (suspected) exposure to COVID-19; Z79.82 Long term (current) use of aspirin; Z85.3 Personal history of malignant neoplasm of breast; Z90.13 Acquired absence of bilateral breasts and nipples; Z90.710 Acquired absence of both cervix and uterus; Z82.49 Family history of ischemic heart disease and other diseases of the circulatory system; Z83.3 Family history of diabetes mellitus
CPT/HCPCS: 93005; 85025; 80048; 36415; 83735; 85610; 80061; 80076; 84443; 84484 ×3; 84439; 83880; 71045; 94760 ×2; 96374; 99285; U0003; J1940 ×3; J1650; G0378 ×2; 81003; 81015